=== PATIENT | male | born 2000 ===

== ENCOUNTER 2021-02-16 18:15 | Emergency (ER) | payer OTHER, MEDICAID, SELFPAY ==
--- NOTE | ~2021-02-16 | XR_ITS ---
EXAMINATION: LEFT HAND CLINICAL INFORMATION: Fall at work COMPARISON: None TECHNIQUE: 3 views. FINDINGS: No fracture. No dislocation. Bone and joint are normal. XR/XR hand wrist LT IMPRESSION: Normal left hand.
--- NOTE | ~2021-02-16 | XR_ITS ---
EXAMINATION: XR ELBOW, LEFT CLINICAL INFORMATION: Fall. COMPARISON: None TECHNIQUE: Three views of the left elbow. FINDINGS: The bones and soft tissues are normal. No fracture or joint effusion. Alignment is anatomic. Joint spaces are maintained. XR/XR elbow LT min 3V IMPRESSION: Normal left elbow.
[2021-02-16 21:31] VITALS: BP 102/60; PULSE 70; RESP 18; TEMP 36.4; O2SAT 100; BMI 18.5
--- NOTE | 2021-02-16 23:03 | ED_ITS ---
HPI - Fall General Chief Complaint: Fall Stated Complaint: work inj Time Seen by Provider: 02/16/21 21:45 Source: patient Mode of arrival: ambulatory History of Present Illness HPI Narrative: 20-year-old male with no significant past medical history presenting to the ED complaining of left elbow and wrist pain s/p slip and fall on waxy wood floor at work [employer]. Reports falling onto left side/hyperextension injury. Denies head trauma or LOC. Denies numbness, tingling, weakness Related Data Previous Rx's Medication Instructions Recorded acetaminophen 500 mg tablet 500 mg PO Q6H PRN #20 tab 02/16/21 (Tylenol Extra Strength) naproxen 500 mg tablet 500 mg PO BID PRN 10 Days #20 tab 02/16/21 Allergies Allergy/AdvReac Type Severity Reaction Status Date / Time No Known Allergies Allergy Verified 02/16/21 21:30 Review of Systems Review of Systems: Constitutional: No Fever, No Chills ENT/Mouth: No Ear Pain, No Nasal Congestion, No sore throat Cardiovascular: No Chest Pain, No SOB Respiratory: No Cough Gastrointestinal: No Nausea, No Vomiting, No Abdominal pain Genitourinary: No Dysuria, No Urgency, No Flank Pain Musculoskeletal: + joint pain, No Myalgias, No Joint Swelling Skin: No Skin Lesions, No rash Neuro: No Weakness, No Numbness, No Paresthesias Yes all other systems are reviewed and are negative [facility] Past Medical History Attestation statement: The following information was validated with the patient. Social History Social History Advance Directives: No Physical Exam Vital Signs: Vital Signs: Last Vital Signs Temp 97.6 F 02/16/21 21:31 Pulse 70 02/16/21 21:31 Resp 18 02/16/21 21:31 BP 102/60 02/16/21 21:31 Pulse Ox 100 02/16/21 21:31 Body Mass Index 18.5 Const: General: cooperative and healthy appearing Orientation/consc iousness: patient oriented x3 Limitations: no limitations HENMT: Head: Yes normal to inspection Ears: hearing grossly normal bilaterally General nose exam: Normal external nose present Face and sinus: Yes normal facial exam Eyes: General: appearance normal, both eyes and all related structures EOM: EOMs intact bilaterally Neck: Neck: Yes normal visual inspection and Yes no meningeal signs Resp: Effort & Inspection: normal respiratory effort and no respiratory distress Cardio: Rate: regular rate Peripheral pulses: radial pulses present Skin: Rashes: no rashes Wounds: no wounds Neuro: General: patient oriented x3 and no meningeal signs Gait exam (Neuro): Normal gait present Extrem: Other: Left elbow with mild tenderness to palpation. No appreciable deformity. Full range of motion intact. Supination/pronation intact Left wrist with mild tenderness. No deformity. No snuffbox tenderness. Range of motion intact. NV intact. [id number] opposition intact General: Yes normal to inspection Course Course Course Narrative: XR elbow LT min 3V IMPRESSION: Normal left elbow. XR hand wrist LT IMPRESSION: Normal left hand.? >> results discussed with patient including worrisome signs and symptoms and strict return precautions, he verbalized understanding feel safe discharge home MDM - Fall MDM Narrative Medical decision making narrative: 20-year-old male with no significant past medical history presenting to the ED complaining of left elbow and wrist pain s/p slip and fall on waxy wood floor at work [employer]. On exam VSS, NAD/well- appearing, physical exam as above. Likely MSK pain/strain or tendon/ligamental injury. Will obtain x-rays Medical Records Attestation: I reviewed the patient's medical records. Discharge Plan Discharge Clinical Impression: Elbow pain, left, Left wrist pain Patient Disposition: Home, Self-Care Instructions: Arthralgia (ED) Additional Instructions: Your x-rays are unremarkable Naproxen as an anti-inflammatory/pain medication, take with food In addition take Tylenol Ice and elevate your painful area Rest Follow-up with your doctor Prescriptions: New acetaminophen [Tylenol Extra Strength] 500 mg tablet 500 mg PO Q6H PRN (Reason: pain or fever) Qty: 20 RF: 0 naproxen 500 mg tablet 500 mg PO BID PRN (Reason: pain) 10 Days Qty: 20 RF: 0 Referrals: [facility] [Outside] - 3 days Stand Alone Forms: Work/School Release
== END 2021-02-16 23:16 | disposition home or self-care (01) ==
PROVIDERS: Emergency Provider Emergency Medicine Emergency Medical Services
DX: S53.402A Unspecified sprain of left elbow, initial encounter (principal); M25.522 Pain in left elbow; M25.532 Pain in left wrist; W01.0XXA Fall on same level from slipping, tripping and stumbling without subsequent striking against object, initial encounter; Y93.E8 Activity, other personal hygiene; Y92.9 Unspecified place or not applicable; Y99.0 Civilian activity done for income or pay
CPT/HCPCS: 73080; 73110; 73130; 99283; 99284

== ENCOUNTER 2021-09-11 15:26 | Emergency (ER) | payer MEDICAID, SELFPAY ==
[2021-09-11 15:41] VITALS: BP 109/57; PULSE 95; RESP 16; TEMP 36.8; O2SAT 97
[2021-09-11 17:26] VITALS: BP 106/70; PULSE 97; RESP 18; TEMP 37.2; O2SAT 100
--- NOTE | 2021-09-11 17:34 | ED_ITS ---
HPI - Nausea/Vomiting/Diarrhea General Chief complaint: Nausea/Vomiting/Diarrhea Stated complaint: vomiting Time Seen by Provider: 09/11/21 17:26 Source: patient and family Mode of arrival: ambulatory History of Present Illness HPI Narrative: 20-year-old male with past medical history of Crohn's on Humira, presenting to the ED c/o nausea and vomiting x3 weeks worsening today with 15 episodes of emesis since 04:30AM. Admits to associated epigastric abdominal pain. Denies similar symptoms in the past. Denies fever, chills, diarrhea, constipation, hematemesis, bloody BMs, suspicious food intake, recent travel, dysuria/hematuria. MD elicited complaint: nausea, vomiting and abdominal pain Onset (ago): week(s) Related Data Previous Rx's Medication Instructions Recorded acetaminophen 500 mg tablet 500 mg PO Q6H PRN #20 tab 02/16/21 (Tylenol Extra Strength) naproxen 500 mg tablet 500 mg PO BID PRN 10 Days #20 tab 02/16/21 ondansetron 4 mg disintegrating 4 mg PO Q8H PRN #10 tab 09/11/21 tablet Allergies Allergy/AdvReac Type Severity Reaction Status Date / Time No Known Allergies Allergy Verified 02/16/21 21:30 Review of Systems Review of Systems: Constitutional: No Fever, No Chills, No Fatigue, No Malaise ENT/Mouth: No Ear Pain, No Nasal Congestion, No sore throat, No Rhinorrhea, No Swallowing Difficulty Eyes: No Eye Pain, No Swelling, No Redness Cardiovascular: No Chest Pain, No SOB, No Edema, No Palpitations Respiratory: No Cough, No Sputum, No Dyspnea Gastrointestinal: + Nausea, + Vomiting, No Diarrhea, No Constipation, No Abdominal pain, No Hematochezia, No Melena Genitourinary:No Dysuria, No Urinary Frequency, No Hematuria, No Urinary Incontinence, No Flank Pain, No Urinary Flow Changes Musculoskeletal: No joint pain, No Myalgias, No Joint Swelling Skin: No Skin Lesions, No rash Neuro: No Weakness, No Numbness, No Dizziness, No Headache Yes all other systems are reviewed and are negative [facility] Past Medical History Attestation statement: The following information was validated with the patient. Medical History Acute Crohn's disease Social History Social History Alcohol intake: never Patient Tobacco Use Status: Never used Tobacco Use of substances other than those prescribed or required for medical reasons: No Advance Directives: No Advance Directives Information Provided: No Physical Exam Vital Signs: Vital Signs: Last Vital Signs Temp 99 F 09/11/21 17:26 Pulse 97 09/11/21 17:26 Resp 18 09/11/21 17:26 BP 106/70 09/11/21 17:26 Pulse Ox 100 09/11/21 17:26 BMI result Body Mass Index 20.0 Const: General: cooperative, healthy appearing, no acute distress, alert and awake Orientation/consciousness: patient oriented x3 Limitations: no limitations HEENT: Head: Yes normal to inspection Ears: hearing grossly normal bilaterally General nose exam: Normal external nose present Face and sinus: Yes normal facial exam Eyes: General: appearance normal, both eyes and all related structures EOM: EOMs intact bilaterally Neck: Neck: Yes normal visual inspection Resp: Effort & Inspection: normal respiratory effort and no respiratory distress Auscultation: clear to auscultation bilaterally Cardio: Rate: regular rate Heart sounds: S1 normal heart sound present and S2 normal heart sound present GI: Inspection: Yes normal to inspection Palpation (GI): Soft to palpation, Tenderness to palpation present (GI) in the epigastrum, no guarding and not rigid : General: Yes no CVA tenderness Back/Spine/Pelvis: Back: no CVA tenderness Skin: Rashes: no rashes Wounds: no wounds Neuro: General: patient oriented x3 Gait exam (Neuro): Normal gait present Extrem: General: Yes normal to inspection Course Course Course Narrative: -1900--no leukocytosis. CRP mildly elevated, labs otherwise unremarkable. Will p.o. challenge -patient tolerated p.o. without nausea or vomiting. UA negative. Discussed with patient worrisome signs and symptoms and strict return precautions as needed close follow-up with PCP MDM - Nausea/Vomiting/Diarrhea MDM Narrative Medical decision making narrative: 20-year-old male with past medical history of Crohn's on Humira, presenting to the ED c/o nausea and vomiting x3 weeks worsening today with 15 episodes of emesis since 04:30AM. Admits to associated epigastric abdominal pain. On exam vital signs stable, NAD, nontoxic appearing, abdomen soft with epigastric tenderness to palpation, no rebound or guarding, no CVA tenderness. Concern for gastroenteritis vs food poisoning vs dehydration and metabolic abnormalities. Low concern for pancreatitis/cholecystitis/lithiasis, appendicitis or diverticulitis. Low suspicion for Crohn's flare Plan: Labs, UA, drug screen, IVF, symptomatic treatment, p.o. challenge, re- evaluate Differential Diagnosis Differential diagnosis: Likely traveler's diarrhea, food poisoning, gastr oenteritis, drug-induced nausea and vomiting and dehydration Medical Records Attestation: I reviewed the patient's medical records. Lab Data Attestation: I reviewed the patient's lab results. Result diagrams: 09/11/21 17:42 09/11/21 17:42 Labs: Lab Results 09/11/21 09/11/21 09/11/21 Range/Units 17:42 17:42 17:42 WBC 7.3 (4.8-10.8) X10*3/uL RBC 5.74 (4.60-5.80) X10*6/uL Hgb 15.6 (14.0-18.0) g/dl Hct 47.7 (42.0-52.0) % MCV 83.1 (80.0-98.0) fL MCH 27.2 (27.0-33.0) pg MCHC 32.7 (31.0-36.0) g/dl RDW 14.5 (11.0-16.0) % Plt Count 259 (160-400) X10*3/uL MPV 9.5 (9.4-12.4) fL Immature Gran % (Auto) 0.1 (0.0-0.4) % Neut % (Auto) 81.9 H (45-73) % Lymph % (Auto) 10.2 L (20-40) % [place] % (Auto) 7.7 (2-11) % Eos % (Auto) 0.0 (0-4) % Baso % (Auto) 0.1 (0-2) % Lymph # (Auto) 0.7 L (1.2-4.9) X10*3/uL [place] # (Auto) 0.6 (0.1-1.2) X10*3/uL Eos # (Auto) 0.0 (0.0-0.4) X10*3/uL Baso # (Auto) 0.0 (0.0-0.2) X10*3/uL Abs Immat Gran (auto) 0.01 (0.00-0.03) X10*3/uL Absolute Neuts (auto) 6.0 (2.0-8.3) x10*3/uL Absolute Nucleated RBC 0.000 (0.0-0.012) X10*3/uL Nucleated RBC % (auto) 0.0 (0.0-0.2) /100WBC ESR 2 (0-15) MM/HR Sodium 138 (135-145) mmol/L Potassium 4.5 (3.3-5.1) mmol/L Chloride 102 (96-108) mmol/L Carbon Dioxide 26 (22-29) mmol/L Anion Gap 15 (12-20) BUN 12 (9-16) mg/dL Creatinine 0.81 (0.5-1.4) mg/dL Estim Creat Clear Calc 117.3 Estimated GFR > 60 Random Glucose 90 (60-115) mg/dL Calcium 9.7 (8.4-10.2) mg/dL Magnesium 1.9 (1.6-2.6) mg/dL Total Bilirubin 0.8 (0.0-1.0) mg/dL Direct Bilirubin 0.3 (0.0-0.5) mg/dL AST 21 (5-37) U/L ALT 20 (0-40) U/L Alkaline Phosphatase 142 H (39-117) U/L C-Reactive Protein 1.42 H (< or = 0.50) mg/dL Total Protein 7.9 (6.5-8.0) g/dL Albumin 4.3 (3.5-5.0) g/dL Lipase 17 (8-78) U/L Urine Color Urine Appearance Urine pH (5.0-8.0) Ur Specific [place] (1.005-1.025) Urine Protein (NEG-TRACE) MG/DL Urine Glucose (UA) (NEG) MG/DL Urine Ketones (NEG) MG/DL Urine Blood (NEG) Urine Nitrite (NEG) Ur Leukocyte Esterase (NEG) Urine RBC (0) /HPF Urine WBC (0-4) /HPF Ur Squamous Epith Cells /LPF Urine Bacteria /LPF Urine Mucus /LPF 09/11/21 Range/Units 19:18 WBC (4.8-10.8) X10*3/uL RBC (4.60-5.80) X10*6/uL Hgb (14.0-18.0) g/dl Hct (42.0-52.0) % MCV (80.0-98.0) fL MCH (27.0-33.0) pg MCHC (31.0-36.0) g/dl RDW (11.0-16.0) % Plt Count (160-400) X10*3/uL MPV (9.4-12.4) fL Immature Gran % (Auto) (0.0-0.4) % Neut % (Auto) (45-73) % Lymph % (Auto) (20-40) % [place] % (Auto) (2-11) % Eos % (Auto) (0-4) % Baso % (Auto) (0-2) % Lymph # (Auto) (1.2-4.9) X10*3/uL [place] # (Auto) (0.1-1.2) X10*3/uL Eos # (Auto) (0.0-0.4) X10*3/uL Baso # (Auto) (0.0-0.2) X10*3/uL Abs Immat Gran (auto) (0.00-0.03) X10*3/uL Absolute Neuts (auto) (2.0-8.3) x10*3/uL Absolute Nucleated RBC (0.0-0.012) X10*3/uL Nucleated RBC % (auto) (0.0-0.2) /100WBC ESR (0-15) MM/HR Sodium (135-145) mmol/L Potassium (3.3-5.1) mmol/L Chloride (96-108) mmol/L Carbon Dioxide (22-29) mmol/L Anion Gap (12-20) BUN (9-16) mg/dL Creatinine (0.5-1.4) mg/dL Estim Creat Clear Calc Estimated GFR Random Glucose (60-115) mg/dL Calcium (8.4-10.2) mg/dL Magnesium (1.6-2.6) mg/dL Total Bilirubin (0.0-1.0) mg/dL Direct Bilirubin (0.0-0.5) mg/dL AST (5-37) U/L ALT (0-40) U/L Alkaline Phosphatase (39-117) U/L C-Reactive Protein (< or = 0.50) mg/dL Total Protein (6.5-8.0) g/dL Albumin (3.5-5.0) g/dL Lipase (8-78) U/L Urine Color YELLOW Urine Appearance CLEAR Urine pH 6.0 (5.0-8.0) Ur Specific [place] >= 1.030 H (1.005-1.025) Urine Protein 1+ H (NEG-TRACE) MG/DL Urine Glucose (UA) NEG (NEG) MG/DL Urine Ketones >=80 (NEG) MG/DL Urine Blood NEG (NEG) Urine Nitrite NEG (NEG) Ur Leukocyte Esterase NEG (NEG) Urine RBC 0-2 (0) /HPF Urine WBC 0 (0-4) /HPF Ur Squamous Epith Cells TRACE /LPF Urine Bacteria NONE /LPF Urine Mucus 1+ /LPF Discharge Plan Discharge Clinical Impression: Nausea & vomiting Patient Disposition: Home, Self-Care Instructions: Acute Nausea and Vomiting (ED) Additional Instructions: Your blood work and urine were reassuring today in the emergency department Zofran as antinausea medication please take as needed Practice a bland diet Please follow-up with her doctor If you are unable to eat or drink, develops fever, constant worsening abdominal pain please return to the emergency department Prescriptions: New ondansetron 4 mg tablet,disintegrating 4 mg PO Q8H PRN (Reason: nausea and vomiting) Qty: 10 0RF No Action acetaminophen [Tylenol Extra Strength] 500 mg tablet 500 mg PO Q6H PRN (Reason: pain or fever) Qty: 20 0RF naproxen 500 mg tablet 500 mg PO BID PRN (Reason: pain) 10 Days Qty: 20 0RF Referrals: Physician,Unknown J [Primary Care Provider] - 5 days (as needed)
[2021-09-11 17:46] LABS: MANUAL DIFF FLAG NO
[2021-09-11 17:49] LABS: Basophils Percent Auto 0.1 % (0-2); Hematocrit 47.7 % (42.0-52.0); Hemoglobin 15.6 g/dl (14.0-18.0); Imm Gran Abs Auto 0.01 X10*3/uL (0.00-0.03); Imm Gran Pct Auto 0.1 % (0.0-0.4); Lymphocytes Absolute Auto 0.7 X10*3/uL (1.2-4.9); Lymphocytes Percent Auto 10.2 % (20-40); Mean Corpuscular HGB Conc 32.7 g/dl (31.0-36.0); Mean Corpuscular Hemoglobin 27.2 pg (27.0-33.0); Mean Corpuscular Volume 83.1 fL (80.0-98.0); Mean Platelet Volume 9.5 fL (9.4-12.4); Monocytes Absolute Auto 0.6 X10*3/uL (0.1-1.2); Monocytes Percent Auto 7.7 % (2-11); Neutrophils Percent Auto 81.9 % (45-73); Platelet Count 259 X10*3/uL (160-400); Red Blood Count 5.74 X10*6/uL (4.60-5.80); Red Cell Distribution Width 14.5 % (11.0-16.0); White Blood Count 7.3 X10*3/uL (4.8-10.8)
[2021-09-11] MEDS: 0.9 % Sodium Chloride 1,000 ML 999 ML IV ×2 (17:58→18:52)
[2021-09-11] MEDS: ondansetron HCL 4 MG/2 ML VIAL IVPUSH (17:58)
[2021-09-11] MEDS: Famotidine/PF 20 MG/2 ML VIAL IVPUSH (17:58)
[2021-09-11] MEDS: Ketorolac Tromethamine 15 MG/ML VIAL IVPUSH (17:58)
[2021-09-11] MEDS: Magnesium Hydrox/Alum Hydrox 30 ML ORAL.SUSP PO (17:59)
[2021-09-11 18:09] LABS: Alanine Aminotransferase 20 U/L (0-40); Albumin Level 4.3 g/dL (3.5-5.0); Alkaline Phosphatase 142 U/L (39-117); Anion Gap 15 (12-20); Aspartate Amino Transferase 21 U/L (5-37); Bilirubin Direct 0.3 mg/dL (0.0-0.5); Bilirubin Total 0.8 mg/dL (0.0-1.0); Blood Urea Nitrogen 12 mg/dL (9-16); C Reactive Protein 1.42 mg/dL (< or = 0.50); Calcium 9.7 mg/dL (8.4-10.2); Carbon Dioxide 26 mmol/L (22-29); Chloride 102 mmol/L (96-108); Creatinine Clr Calc Pharmacy 117.3; Estimated Glomerular Filt Rate > 60; Glucose Random 90 mg/dL (60-115); Lipase 17 U/L (8-78); Magnesium 1.9 mg/dL (1.6-2.6); Potassium 4.5 mmol/L (3.3-5.1); Sodium 138 mmol/L (135-145); Total Protein 7.9 g/dL (6.5-8.0)
[2021-09-11 18:28] LABS: Erythrocyte Sedimentation Rate 2 MM/HR (0-15)
[2021-09-11 19:26] LABS: Appearance Urine CLEAR; Color Urine YELLOW; Glucose Urine UA NEG (NEG); Leukocyte Esterase Urine NEG (NEG); Nitrite Urine NEG (NEG); Specific Gravity - Urine >= 1.030 (1.005-1.025); UACC Culture Trigger NO; Urine Blood NEG (NEG); Urine Ketones >=80 MG/DL (NEG); Urine Protein 1+ MG/DL (NEG-TRACE)
[2021-09-11 19:33] LABS: Mucus Urine 1+ /LPF; RBC Urine 0-2 /HPF (0); Squamous Epithelial Cell Urine TRACE /LPF; WBC Urine 0 /HPF (0-4)
[2021-09-11 19:50] LABS: Amphetamine Screen Urine Not Detected (Not Detect); Barbiturates, Urine Not Detected (Not Detect); Benzodiazepines Screen Urine Not Detected (Not Detect); Cannabinoid Screen Urine Not Detected (Not Detect); Cocaine Screen Urine Not Detected (Not Detect); Fentanyl, urine Not Detected (Not Detect); Opiate Screen Urine Not Detected (Not Detect); Phencyclidine Screen Urine Not Detected (Not Detect)
== END 2021-09-11 20:08 | disposition home or self-care (01) ==
PROVIDERS: Physician Assistant; Emergency Provider Internal Medicine
DX: R11.2 Nausea with vomiting, unspecified (principal); K50.90 Crohn's disease, unspecified, without complications; Z79.899 Other long term (current) drug therapy
CPT/HCPCS: 36415; 80048; 80076; 80307; 81001; 83690; 83735; 85025; 85652; 86140; 96361; 96374; 96375; 99284; J1885; J2405

== ENCOUNTER 2023-07-07 12:38 | Emergency (ER) | payer OTHER, SELFPAY ==
--- NOTE | ~2023-07-07 | XR_ITS ---
EXAMINATION: XR CHEST CLINICAL INFORMATION: Cough. COMPARISON: None available. TECHNIQUE: 2 views of the chest were obtained. FINDINGS: No significant abnormality is noted involving the heart, lungs, mediastinum, bony thorax or soft tissues. XR/XR chest 2V IMPRESSION: Unremarkable chest examination.
[2023-07-07 12:47] VITALS: BP 107/65; PULSE 125; RESP 18; TEMP 38.6; O2SAT 100; BMI 18.9
--- NOTE | 2023-07-07 12:50 | ED_ITS ---
HPI - General Adult General Chief complaint: Upper Respiratory Symptoms Stated complaint: body ache, nausea Time Seen by Provider: 07/07/23 13:38 Source: patient Mode of arrival: ambulatory Limitations: no limitations History of Present Illness HPI narrative: Patient comes to the emergency room complaining of body aches, fever, cough starting today. Patient states that he feels the same way as when he tested COV ID positive for the 1st time. Patient denies any shortness of breath, no chest pain, no nausea vomiting diarrhea or UTI symptoms Related Data Previous Rx's Medication Instructions Recorded acetaminophen 500 mg tablet 500 mg PO Q6H PRN pain or fever 02/16/21 (Tylenol Extra Strength) #20 tabs naproxen 500 mg tablet 500 mg PO BID PRN pain 10 days #20 02/16/21 tabs ondansetron 4 mg disintegrating 4 mg PO Q8H PRN nausea and 09/11/21 tablet vomiting #10 tabs acetaminophen 500 mg capsule 500 mg PO QID PRN fever or pain 07/07/23 #14 caps ibuprofen 600 mg tablet 600 mg PO TID PRN fever or pain 07/07/23 #14 tabs nirmatrelvir 300 mg (150 mg See Rx Instructions PO .COMPLEX 07/07/23 x2)-ritonavir 100 mg tablet,dose #30 ea pack (Paxlovid) Allergies Allergy/AdvReac Type Severity Reaction Status Date / Time No Known Allergies Allergy Verified 07/07/23 12:52 Review of Systems Review of Systems: Constitutional : No Weight loss, complaining of fever chills, fatigue and generalized malaise ENT/Mouth : No Hearing loss, No Ear Pain, No Nasal Congestion, No Sinus Pain, No Hoarseness, complaining of mild sore throat, No Rhinorrhea, No Swallowing Difficulty Eyes: No Eye Pain, No Swelling, No Redness, No Foreign Body, No Discharge, No Vision Changes Cardiovascular : No Chest Pain, No SOB, No Dyspnea on Exertion, No Orthopnea, No Edema, No Palpitations Respiratory : No Cough, No Sputum, No Wheezing, No Smoke Exposure, No Dyspnea Gastrointestinal : No Nausea, No Vomiting, No Diarrhea, No Constipation, No abdominal Pain, No Hematochezia, No Melena Genitourinary : no irregular bleeding, No Dysuria, No Urinary Frequency, No Hematuria, No Urinary Incontinence, No Urgency, No Flank Pain, No Urinary Flow Changes, No Hesitancy Musculoskeletal : No joint pain, No Myalgias, No Joint Swelling Skin : No Skin Lesions, No rash Neuro : No Weakness, No Numbness, No Paresthesias, No Loss of Consciousness, No Dizziness, No Headache Psych : No Anxiety/Panic, No Depression, No SI/HI/AH/VH, No Social Issues, Heme/Lymph: No Bruising, No Bleeding,No Lymphadenopathy Endocrine : No Polyuria, No Polydipsia, No Temperature Intolerance FOR[facility]LY [facility], [facility] Past Medical History Medical History Acute Crohn's disease Social History Social History Alcohol intake: never Patient Tobacco Use Status: Never used Tobacco Advance Directives: No Advance Directives Information Provided: Yes Physical Exam ED Vital Signs: Vital Signs - 24 hr 07/07/23 12:47 Temperature 101.4 F H Pulse Rate 125 H Respiratory Rate 18 Blood Pressure 107/65 Pulse Oximetry 100 Oxygen Delivery Method Room Air BMI result Body Mass Index 18.9 Const Other: Appearance: Alert. Oriented X3. No acute distress. Eyes: Pupils equal, round and reactive to light. ENT: Pharynx normal. Neck: Normal inspection. Neck supple. No lymph nodes noted. No crepitus CVS: Normal heart rate and rhythm. Pulses normal. Normal S1 and S2 Respiratory: No respiratory distress. Breath sounds normal. No Wheezing. No rales Abdomen: Soft and nontender. No rigidity. No distention. Skin: Skin warm and dry. Normal skin color. Normal skin turgor. Extremities: No lower extremity edema. No Lacerations. No Rash Neuro: Oriented X 3. No motor deficit. No sensory deficit. Moving all extremities. No slurred speech. CN 2 through 12 grossly intact Psych: calm, cooperative, normal affect Course Course Course Narrative: RME performed by Negrita Vela PA-C. Patient is a 22 year old assigned male at presenting to the emergency department with body aches and a cough. Detailed physical exam and review of systems are deferred to the emergency medical dispatcher. Imaging and swabs ordered. Patient placed back in the waiting room pending room availability and results. Medical Decision Making Medical Decision Making MDM Narrative: Patient is well-appearing patient does have fever. Patient given ibuprofen in the emergency room. -my interpretation of labs: Positive for COVID -I discussed with the patient treating symptomatically versus with the antiviral medication, patient decided to try Paxlovid Differential Diagnosis Differential Diagnoses: The differential diagnosis associated with the presentation includes (COVID, influenza, URI) Lab Data Labs: Lab Results 07/07/23 Range/Units 12:58 COVID-19 (AIYANA) Positive A (Negative) COVID-19 Clin Com See Note Influenza Type A (MICHAEL) Negative (Negative) Influenza Type B (MICHAEL) Negative (Negative) Influenza A & B Note See Note Discharge Plan Discharge Clinical Impression: COVID-19 Patient Disposition: Home, Self-Care Instructions: COVID-19 (Coronavirus Disease 2019) (ED) Additional Instructions: Please follow-up with your primary care physician tomorrow. If you have any worsening or new symptoms, please return to the emergency room or call 911 Prescriptions: New Paxlovid 300 mg (150 mg x 2)-100 mg tablets,dose pack See Rx Instructions .ROUTE .COMPLEX Qty: 30 0RF Rx Instructions: take TWO 150 mg tablets of nirmatrelvir with ONE 100 mg tablet of ritonavir twice daily for 5 days ibuprofen 600 mg tablet 600 mg PO TID PRN (Reason: fever or pain) Qty: 14 0RF acetaminophen 500 mg capsule 500 mg PO QID PRN (Reason: fever or pain) Qty: 14 0RF No Action acetaminophen [Tylenol Extra Strength] 500 mg tablet 500 mg PO Q6H PRN (Reason: pain or fever) Qty: 20 0RF naproxen 500 mg tablet 500 mg PO BID PRN (Reason: pain) 10 Days Qty: 20 0RF ondansetron 4 mg tablet,disintegrating 4 mg PO Q8H PRN (Reason: nausea and vomiting) Qty: 10 0RF
[2023-07-07 13:17] LABS: COVID-19 Test Positive (Negative); IDNOW Serial# 08D9AD1C
[2023-07-07 13:30] LABS: IDNOW Serial# 9DB6401D; Influenza A Negative (Negative); Influenza B2 Negative (Negative)
[2023-07-07] MEDS: Ibuprofen 600 MG TABLET PO (14:06)
== END 2023-07-07 14:13 | disposition home or self-care (01) ==
PROVIDERS: Physician Assistant Medical; Emergency Provider Emergency Medicine
DX: U07.1 COVID-19 (principal); M79.10 Myalgia, unspecified site; R11.2 Nausea with vomiting, unspecified; R05.9 Cough, unspecified
CPT/HCPCS: 71046; 87502; 87635; 99283

== ENCOUNTER 2023-12-11 18:13 | Emergency (ER) | payer OTHER, SELFPAY ==
--- NOTE | ~2023-12-11 | CT_ITS ---
EXAMINATION: CT ABDOMEN AND PELVIS WITH CONTRAST CLINICAL INFORMATION: Abdominal pain. History of Crohn's disease. COMPARISON: None available. TECHNIQUE: Multidetector volumetric images were obtained from the superior aspect of the liver through the pubic symphysis following administration 85 mL of Omnipaque 350 intravenous contrast. Sagittal and coronal reformatted images were obtained on the technologist's workstation. Oral contrast: No This CT examination was performed using dose optimization techniques as appropriate, variously including the following: *Automated exposure control *Adjustment of mA and/or kV according to patient size (this includes techniques or standardized protocols for targeted exams where dose is matched to indication/reason for exam; i.e. extremities or head) *Use of iterative reconstruction technique DLP: 253 mGy-cm FINDINGS: LUNG BASES: The visualized lung bases are unremarkable. LIVER, GALLBLADDER, AND BILIARY TREE: The liver is normal in size, shape, and attenuation. No focal hepatic lesion or biliary ductal dilatation is present. The gallbladder is unremarkable with no evidence of radiopaque gallstones, gallbladder wall thickening, or obvious pericholecystic inflammatory changes. PANCREAS: Unremarkable. SPLEEN: Unremarkable. ADRENAL GLANDS: Unremarkable. KIDNEYS AND URETERS: The kidneys are normal in size, shape, and attenuation. No hydronephrosis, hydroureter, or calculi seen. No perinephric stranding. BLADDER: Unremarkable. GASTROINTESTINAL TRACT: There is mild to moderate thickening of distal small bowel and diffuse mild to moderate thickening of large bowel. The appendix is is not identified. ABDOMINAL WALL: No significant hernia is appreciated. LYMPH NODES: Normal. VASCULAR: Unremarkable. PELVIC VISCERA: Unremarkable. OSSEOUS STRUCTURES: Unremarkable. CT/CT abdomen pelvis w IV con IMPRESSION: Mild to moderate thickening of distal small bowel and diffuse mild to moderate thickening of large bowel consistent with history of Crohn's disease. No other significant abnormality seen. Fleischner guidelines were followed.
[2023-12-11 18:36] VITALS: BP 104/61; PULSE 105; RESP 18; TEMP 37.2; O2SAT 98; BMI 17.0
[2023-12-11 18:56] LABS: Basophils Percent Auto 0.6 % (0-2); Eosinophils Absolute Auto 0.1 X10*3/uL (0.0-0.4); Eosinophils Percent Auto 2.7 % (0-4); Hematocrit 30.2 % (42.0-52.0); Hemoglobin 9.3 g/dl (14.0-18.0); Imm Gran Abs Auto 0.01 X10*3/uL (0.00-0.03); Imm Gran Pct Auto 0.2 % (0.0-0.4); Lymphocytes Absolute Auto 0.7 X10*3/uL (1.2-4.9); Lymphocytes Percent Auto 13.8 % (20-40); MANUAL DIFF FLAG SCAN; Mean Corpuscular HGB Conc 30.8 g/dl (31.0-36.0); Mean Corpuscular Hemoglobin 21.4 pg (27.0-33.0); Mean Corpuscular Volume 69.6 fL (80.0-98.0); Mean Platelet Volume 8.2 fL (9.4-12.4); Monocytes Absolute Auto 1.2 X10*3/uL (0.1-1.2); Monocytes Percent Auto 22.8 % (2-11); Neutrophils Absolute Auto 3.1 x10*3/uL (2.0-8.3); Neutrophils Percent Auto 59.9 % (45-73); Platelet Count 448 X10*3/uL (160-400); Red Blood Count 4.34 X10*6/uL (4.60-5.80); Red Cell Distribution Width 17.2 % (11.0-16.0); SCAN SMEAR FLAG 1; White Blood Count 5.2 X10*3/uL (4.8-10.8)
[2023-12-11 19:19] LABS: Alanine Aminotransferase 8 U/L (0-40); Alkaline Phosphatase 76 U/L (39-117); Anion Gap 11 (12-20); Aspartate Amino Transferase 14 U/L (5-37); Bilirubin Total 0.3 mg/dL (0.0-1.0); Blood Urea Nitrogen 10 mg/dL (9-16); C Reactive Protein 12.51 mg/dL (< or = 0.50); Calcium 8.6 mg/dL (8.4-10.2); Carbon Dioxide 28 mmol/L (22-29); Chloride 99 mmol/L (96-108); Estimated Glomerular Filt Rate > 60; Glucose Random 99 mg/dL (60-115); Lipase 18 U/L (8-78); Potassium 3.8 mmol/L (3.3-5.1); Sodium 134 mmol/L (135-145); Total Protein 7.5 g/dL (6.5-8.0)
[2023-12-11 20:14] LABS: SLIDE REVIEW VERIFIED
[2023-12-11 22:17] VITALS: BP 106/59; PULSE 97; RESP 20; TEMP 37; O2SAT 99
--- NOTE | 2023-12-11 23:20 | ED_ITS ---
HPI - General Adult General Chief complaint: Abdominal Pain Stated complaint: crohn's disease, fatigue, not eating Time Seen by Provider: 12/11/23 22:48 History of Present Illness ED Provider: Arron Gan PA-C HPI narrative: 22 yold male with pmh of [place] presents to the ED for lower abdominal pain, rectal bleeding with stool, for the past couple of days. Patient states he has not been compliant with his senior bi architect and they have not seen his senior bi architect specialist for the past 3 years. Patient states his Crohn's has not been managed for the past 3 years. Related Data Previous Rx's ?Medication ?Instructions ?Recorded acetaminophen 500 mg tablet 500 mg PO Q6H PRN pain or fever 02/16/21 (Tylenol Extra Strength) #20 tabs naproxen 500 mg tablet 500 mg PO BID PRN pain 10 days #20 02/16/21 tabs ondansetron 4 mg disintegrating 4 mg PO Q8H PRN nausea and 09/11/21 tablet vomiting #10 tabs acetaminophen 500 mg capsule 500 mg PO QID PRN fever or pain 07/07/23 #14 caps ibuprofen 600 mg tablet 600 mg PO TID PRN fever or pain 07/07/23 #14 tabs nirmatrelvir 300 mg (150 mg See Rx Instructions PO .COMPLEX 07/07/23 x2)-ritonavir 100 mg tablet,dose #30 ea pack (Paxlovid) prednisone 20 mg tablet 40 mg (2 x 20 mg) PO DAILY 5 days 12/12/23 #10 tabs Allergies Allergy/AdvReac Type Severity Reaction Status Date / Time No Known Allergies Allergy Verified 12/11/23 18:39 Review of Systems 2 Review of Systems: Lower abdominal pain, blood in stool Yes all other systems are reviewed and are negative FOR[facility]LY [facility], [facility] Past Medical History Medical History Acute Crohn's disease Social History Social History Alcohol intake: never Patient Tobacco Use Status: Never used Tobacco Advance Directives: No Advance Directives Information Provided: No Do you have a plan to hurt others: No Plan Physical Exam ED Vital Signs: Vital Signs - 24 hr 12/11/23 18:36 12/11/23 22:17 12/12/23 01:31 Temperature 98.9 F 98.6 F 98.3 F Pulse Rate 105 H 97 94 Respiratory Rate 18 20 14 Blood Pressure 104/61 106/59 L 107/62 Pulse Oximetry 98 99 97 Oxygen Delivery Method Room Air Room Air Room Air BMI result Body Mass Index 17.0 Const General: cooperative, healthy appearing, comfortable, no acute distress, well developed, alert, awake and Physically active Orientation/consciousness: patient oriented x3 [facility] Head: Yes normal to inspection, Yes No palpable skull fracture present, Yes normocephalic and Yes atraumatic Eyes General: appearance normal, both eyes and all related structures Neck Neck: Yes normal visual inspection, Yes full ROM, Yes no lymphadenopathy, Yes no meningeal signs, Yes trachea midline, Yes supple, No anterior neck swelling and No tender Chest Chest palpation & inspection: normal inspection of the chest and normal palpation of entire chest wall Resp Effort & Inspection: normal respiratory effort and able to speak in complete sentences Auscultation: clear to auscultation bilaterally Cardio Jugular venous distension: no JVD Heart sounds: S1 normal heart sound present and S2 normal heart sound present GI Inspection: Yes normal to inspection Palpation (GI): Soft to palpation, not firm, Tenderness to palpation present (GI) in the LLQ and in the RLQ, no guarding and not rigid General: No CVA tenderness and Yes no CVA tenderness Back/Spine/Pelvis Back: no CVA tenderness, No CVA tenderness and No back tenderness Skin General skin exam: no rashes or lesions noted, elasticity normal and turgor normal Neuro General: patient oriented x3, gait normal, tone normal, moves all extremities, Normal light touch and pain sensation, no meningeal signs, no focal motor deficits, CN's II-XI intact bilaterally and normal sensation to monofilament Extrem General: Yes normal to inspection, Yes full ROM and Yes capillary refill normal Psych Appearance: grossly normal, well kempt and not disheveled Medications Administered Discontinued Medications Generic Name Dose Route Start Last Admin Trade Name Freq PRN Reason Stop Dose Admin Sodium Chloride 1,000 mls @ 999 mls/hr 12/11/23 23:05 12/12/23 00:29 Ns IV 12/12/23 00:05 Infused .Q1H1M STA Infusion Iohexol 85 ml 12/11/23 23:28 12/11/23 23:28 Iohexol 350 Mg/Ml 100 Ml Infus..Btl IV 12/11/23 23:29 85 ml ONCE ONE Administration Methylprednisolone Sodium Succinate 60 mg 12/11/23 23:05 12/11/23 23:28 Methylprednisolone Sod Succ 125 Mg/2 Ml Vial IVPUSH 12/11/23 23:06 60 mg ONCE ONE Administration Morphine Sulfate 2 mg 12/11/23 23:05 12/11/23 23:28 Morphine Sulfate 2 Mg/Ml Cartridge IVPUSH 12/11/23 23:06 2 mg ONCE ONE Administration Protocol Medical Decision Making Medical Decision Making [facility] Narrative: 22-year-old male presents to ED for lower abdominal pain with diarrhea and blood in stool. Patient has not seen a senior bi architect for the past 3 years. Initial labs show anemia waiting for [facility] labs to compare. Solu-Medrol morphine CT scan ordered 2:12am: Patient feels better after receiving Solu-Medrol and morphine. Abdominal CT scan came back negative for any abscess, confirmed Crohn's. Patient's stool guaiac negative. Not suspecting GI bleed. 04/24/2023 [facility] notes show hemoglobin hematocrit 11.5/38.3. Anemia due to Crohn's. Rectal exam negative for any hemorrhaging, bright red blood, melena, black stool, or hemorrhoids. Patient is not septic. Differential Diagnosis Differential Diagnoses: The differential diagnosis associated with the presentation includes (Abscess, perforation, colitis) Admission/Observation Consideration of admission/observation: Escalation of care including admission/observation considered Lab Data [facility] Lab Attestation statement: I reviewed the patient's lab results. 12/11/23 18:50 12/11/23 18:50 Labs: Lab Results 12/11/23 12/12/23 12/12/23 Range/Units 18:50 01:27 02:27 WBC 5.2 (4.8-10.8) X10*3/uL RBC 4.34 L D (4.60-5.80) X10*6/uL Hgb 9.3 L D (14.0-18.0) g/dl Hct 30.2 L D (42.0-52.0) % MCV 69.6 L (80.0-98.0) fL MCH 21.4 L (27.0-33.0) pg MCHC 30.8 L (31.0-36.0) g/dl RDW 17.2 H (11.0-16.0) % Plt Count 448 H D (160-400) X10*3/uL MPV 8.2 L (9.4-12.4) fL Immature Gran % (Auto) 0.2 (0.0-0.4) % Neut % (Auto) 59.9 (45-73) % Lymph % (Auto) 13.8 L (20-40) % [place] % (Auto) 22.8 H (2-11) % Eos % (Auto) 2.7 (0-4) % Baso % (Auto) 0.6 (0-2) % Lymph # (Auto) 0.7 L (1.2-4.9) X10*3/uL [place] # (Auto) 1.2 (0.1-1.2) X10*3/uL Eos # (Auto) 0.1 (0.0-0.4) X10*3/uL Baso # (Auto) 0.0 (0.0-0.2) X10*3/uL Abs Immat Gran (auto) 0.01 (0.00-0.03) X10*3/uL Absolute Neuts (auto) 3.1 (2.0-8.3) x10*3/uL Absolute Nucleated RBC 0.000 (0.0-0.012) X10*3/uL Nucleated RBC % (auto) 0.0 (0.0-0.2) /100WBC Smear Tech's Comments VERIFIED Sodium 134 L (135-145) mmol/L Potassium 3.8 (3.3-5.1) mmol/L Chloride 99 (96-108) mmol/L Carbon Dioxide 28 (22-29) mmol/L Anion Gap 11 L (12-20) BUN 10 (9-16) mg/dL Creatinine 0.81 (0.5-1.4) mg/dL Estim Creat Clear Calc 101.0 Estimated GFR > 60 Random Glucose 99 (60-115) mg/dL Calcium 8.6 D (8.4-10.2) mg/dL Total Bilirubin 0.3 (0.0-1.0) mg/dL AST 14 (5-37) U/L ALT 8 (0-40) U/L Alkaline Phosphatase 76 (39-117) U/L C-Reactive Protein 12.51 H (< or = 0.50) mg/dL Total Protein 7.5 (6.5-8.0) g/dL Albumin 3.0 L (3.5-5.0) g/dL Lipase 18 (8-78) U/L Urine Color Yellow Urine Appearance Clear Urine pH 5.5 (5.0-9.0) Ur Specific [place] >= 1.030 H (1.005-1.025) Urine Protein Negative (Neg-Trace) mg/dL Urine Glucose (UA) Negative (Negative) mg/dL Urine Ketones 40 (Negative) mg/dL Urine Blood Negative (Negative) Urine Nitrite Negative (Negative) Ur Leukocyte Esterase Negative (Negative) Stool Occult Blood NEGATIVE (NEGATIVE) Independent Interpretation I performed an independent interpretation of an: CT Scan Radiology Impression Discussion of test interpretation with radiology: I have reviewed the radiologist's reading. Independent Historian Clinical information obtained from an independent historian. History obtained from or confirmed by: Parent and Other (Patient) External Record Review External record reviewed: Other (Prior) Prescription Management I considered prescription management with: Pain Medication Discharge Plan Discharge Clinical Impression: Crohn disease Patient Disposition: Home, Self-Care Instructions: Crohn Disease (ED) Additional Instructions: The abdominal CT scan came back negative for perforation or abscess. Recommend follow-up with your primary care provider. Recommend follow-up with the gastroenterology. Return to the ED immediately for abdominal pain, fever, chills, profuse diarrhea with bloody stool, weakness, dizziness, or any other concerning symptoms. Prescriptions: New prednisone 20 mg tablet 40 mg PO DAILY 5 Days Qty: 10 0RF No Action acetaminophen [Tylenol Extra Strength] 500 mg tablet 500 mg PO Q6H PRN (Reason: pain or fever) Qty: 20 0RF naproxen 500 mg tablet 500 mg PO BID PRN (Reason: pain) 10 Days Qty: 20 0RF ondansetron 4 mg tablet,disintegrating 4 mg PO Q8H PRN (Reason: nausea and vomiting) Qty: 10 0RF Paxlovid 300 mg (150 mg x 2)-100 mg tablets,dose pack See Rx Instructions .ROUTE .COMPLEX Qty: 30 0RF Rx Instructions: take TWO 150 mg tablets of nirmatrelvir with ONE 100 mg tablet of ritonavir twice daily for 5 days ibuprofen 600 mg tablet 600 mg PO TID PRN (Reason: fever or pain) Qty: 14 0RF acetaminophen 500 mg capsule 500 mg PO QID PRN (Reason: fever or pain) Qty: 14 0RF Stand Alone Forms: Work/School Release Print Language: Austrian
[2023-12-11] MEDS: iohexoL 350 MG/ML 100 ML INFUS..BTL 85 ML IV (23:28)
[2023-12-11] MEDS: Morphine Sulfate 2 MG/ML CARTRIDGE IVPUSH (23:28)
[2023-12-11] MEDS: methylPREDNISolone Sod Succ 125 MG/2 ML VIAL 60 MG IVPUSH (23:28)
[2023-12-11] MEDS: 0.9 % Sodium Chloride 1,000 ML 999 ML IV (23:28)
[2023-12-12 01:31] VITALS: BP 107/62; PULSE 94; RESP 14; TEMP 36.8; O2SAT 97
[2023-12-12 01:35] LABS: OBS Int Ctl Valid YES; OBS1 NEGATIVE (NEGATIVE)
[2023-12-12 02:34] LABS: Appearance Urine Clear; Color Urine Yellow; Glucose Urine UA Negative (Negative); Leukocyte Esterase Urine Negative (Negative); Nitrite Urine Negative (Negative); PH 5.5 (5.0-9.0); Specific Gravity - Urine >= 1.030 (1.005-1.025); Urine Blood Negative (Negative); Urine Ketones 40 mg/dL (Negative); Urine Protein Negative (Neg-Trace)
[2023-12-12 03:28] VITALS: BP 107/62; PULSE 94; RESP 14; TEMP 36.8; O2SAT 97
== END 2023-12-12 03:28 | disposition home or self-care (01) ==
PROVIDERS: Physician Assistant; Emergency Provider Internal Medicine
DX: K50.90 Crohn's disease, unspecified, without complications (principal); R10.2 Pelvic and perineal pain; Z79.899 Other long term (current) drug therapy
CPT/HCPCS: 36415; 74177; 80053; 81003; 82272; 83690; 85025; 86140; 96361; 96374; 96375; 99284; J2270; J2919; Q9967

== ENCOUNTER 2024-04-09 11:43 | Inpatient (IN) | payer OTHER, SELFPAY ==
--- NOTE | ~2024-04-09 | XR_ITS ---
EXAMINATION: XR ABDOMEN KUB CLINICAL INDICATION: Chronic disease. COMPARISON: CT abdomen/pelvis dated 04/09/2024. TECHNIQUE: AP supine views of the abdomen. FINDINGS: Redemonstration of central dilated bowel loops, similar when compared to the prior CT which could represent ileus. Small amount of air and stool within the rectum. No abnormal soft tissue calcification. No acute osseous abnormality. XR/XR KUB IMPRESSION: Redemonstration of central dilated bowel loops, similar when compared to the prior CT which could represent ileus. Small amount of air and stool within the rectum. Electronically signed by: Timothy Jimenez MD 04/10/2024 08:18 PM [facility]
--- NOTE | ~2024-04-09 | CT_ITS ---
EXAMINATION: CT ABDOMEN AND PELVIS WITH CONTRAST CLINICAL INFORMATION: Crohn's disease COMPARISON: CT abdomen pelvis 12/11/23 TECHNIQUE: Multidetector volumetric imaging was performed from the superior aspect of the liver through the pubic symphysis with intravenous contrast. A total of 85 mL of Omnipaque 350 was utilized for the study. Sagittal and coronal reformatted images were obtained on the technologist's workstation. This CT examination was performed using dose optimization techniques as appropriate, variously including the following: *Automated exposure control *Adjustment of mA and/or kV according to patient size (this includes techniques or standardized protocols for targeted exams where dose is matched to indication/reason for exam; i.e. extremities or head) *Use of iterative reconstruction technique DLP: 256 mGy-cm FINDINGS: LUNG BASES: The visualized lung bases are unremarkable. LIVER, GALLBLADDER, AND BILIARY TREE: The liver is enlarged at 18.5 cm in greatest length. There is some mild periportal edema. No focal hepatic lesion or biliary ductal dilatation is present. The gallbladder is unremarkable with no evidence of radiopaque gallstones, gallbladder wall thickening, or obvious pericholecystic inflammatory changes. PANCREAS: Unremarkable. SPLEEN: Unremarkable. ADRENAL GLANDS: Unremarkable. KIDNEYS AND URETERS: The kidneys are normal in size, shape, and attenuation. No hydronephrosis, hydroureter, or calculi seen. No perinephric stranding. BLADDER: Unremarkable. GASTROINTESTINAL TRACT: There is marked inflammatory change and mucosal thickening involving the entire colon with marked dilatation of the cecum measuring 7.8 x 9.4 x 5.8 cm which is filled with fluid, significantly larger than on 12/11/23. There is some minimal dilatation of small bowel but no evidence of obstruction. ABDOMINAL WALL: No significant hernia is appreciated. LYMPH NODES: No retroperitoneal lymphadenopathy. Multiple small lymph nodes are present in the mesentery. VASCULAR: Unremarkable. PELVIC VISCERA: The prostate is mildly enlarged. Seminal vesicles appear normal. OSSEOUS STRUCTURES: Unremarkable. CT/CT abdomen pelvis w IV con IMPRESSION: 1. Marked inflammatory change involving the entire colon with marked dilatation of the cecum. Findings are consistent with active inflammatory bowel disease. 2. Incidental note made of hepatomegaly and mild periportal edema. Fleischner guidelines were followed. Electronically signed by: Marty Quinteros MD 04/09/2024 08:31 PM EST RP
--- NOTE | 2024-04-09 12:07 | ED.GENADULT ---
HPI - General Adult General Chief complaint: Abdominal Pain Stated complaint: Fatigued Time Seen by Provider: 04/09/24 17:09 Source: patient Limitations: no limitations History of Present Illness ED Provider: Rosalina Hong PA-C HPI narrative: Patient is a 23 year old male with a history of Crohn's Disease who presents with complaints of profuse bloody diarrhea, fatigue, and 9/10 RLQ abdominal pain. His diarrhea has been worsening and he states it is worse at night. It has been getting increasingly more bloody, and now is significant BRB. He has multiple episodes per day. He is unable to sleep and feels extremely fatigued. He also states that recently he has become short of breath and developed a significant headache. He also mentions that he has been feeling dizzy lately. He mentions that the last time he was seen in the ED, his blood counts were low, and that he feels worse now than he did at that point. Patient was being treated with Humira until the beginning of this year when he changed health insurance plans and was unable to see that provider. He has not been able to find a new provider since that time and therefore has been unmedicated. Patient denies sick contacts, upper respiratory symptoms, and trauma to the abdomen. Related Data Previous Rx's ?Medication ?Instructions ?Recorded acetaminophen 500 mg tablet 500 mg PO Q6H PRN pain or fever 02/16/21 (Tylenol Extra Strength) #20 tabs naproxen 500 mg tablet 500 mg PO BID PRN pain 10 days #20 02/16/21 tabs ondansetron 4 mg disintegrating 4 mg PO Q8H PRN nausea and 09/11/21 tablet vomiting #10 tabs acetaminophen 500 mg capsule 500 mg PO QID PRN fever or pain 07/07/23 #14 caps ibuprofen 600 mg tablet 600 mg PO TID PRN fever or pain 07/07/23 #14 tabs nirmatrelvir 300 mg (150 mg See Rx Instructions PO .COMPLEX 07/07/23 x2)-ritonavir 100 mg tablet,dose #30 ea pack (Paxlovid) prednisone 20 mg tablet 40 mg (2 x 20 mg) PO DAILY 5 days 12/12/23 #10 tabs Allergies Allergy/AdvReac Type Severity Reaction Status Date / Time No Known Allergies Allergy Verified 04/09/24 12:10 Review of Systems Review of Systems: Yes all other systems are reviewed and are negative Constitutional: Constitutional: Reports difficulty sleeping, Denies excessive sweating, Reports fatigue, Denies fever(s), Reports headache(s), Reports lethargy, Reports weakness and Denies weight gain Eyes: Eyes: Denies change in vision, Denies loss of vision and Denies eye pain ENT: Reports dizziness, Reports headache(s), Denies post nasal drip, Denies tinnitus and Denies sore throat Cardiovascular: Cardiovascular: Denies Abdominal Distension, Denies chest pain, Denies Epigastric Pain, Denies syncope, Reports rapid heart rate, Denies leg edema, Reports lightheadedness and Denies dyspnea Respiratory: Respiratory: Denies cough, Denies dyspnea and Denies wheezing Gastrointestinal: Gastrointestinal: Reports abdominal pain, Denies melena, Reports bloating, Reports hematochezia, Denies constipation, Reports GI cramping, Reports diarrhea, Reports loose stools, Denies nausea and Denies vomiting Genitourinary: Genitourinary: Denies hematuria, Denies dysuria and Denies urinary frequency Musculoskeletal: Musculoskeletal: Denies myalgias, Denies arthralgias, Denies joint swelling, Denies limited range of motion, Denies numbness, Denies stiffness and Denies tingling Integumentary/Breasts: Skin/Breast: Denies alopecia, Denies lesions, Denies rash and Denies wounds Neurologic: Reports dizziness, Denies syncope, Reports headache(s), Denies loss of vision, Denies numbness, Denies tingling and Reports weakness Psychiatric: Psychiatric: Denies homicidal ideation and Denies suicidal ideation Endocrine: Endocrine: Denies excessive sweating, Reports fatigue, Denies flushing, Denies heat intolerance, Denies polyphagia and Denies polyuria Allergic/Immunologic: Allergic/Immunologic: Denies wheezing PMFSH Past Medical History Attestation statement: The following information was validated with the patient. Medical History Acute Crohn's disease Social History Social History Alcohol intake: never Patient Tobacco Use Status: Never used Tobacco Advance Directives: No Advance Directives Information Provided: Yes Physical Exam ED Vital Signs: Vital Signs - 24 hr 04/09/24 12:08 04/09/24 18:04 04/09/24 18:47 Temperature 99.8 F 100 F Pulse Rate 129 H 101 H 94 Respiratory Rate 18 16 16 Blood Pressure 109/74 114/71 110/61 Pulse Oximetry 100 100 100 Oxygen Delivery Method Room Air Room Air Room Air 04/09/24 19:02 04/09/24 20:00 04/09/24 22:00 Temperature 98.3 F 97.7 F 98.7 F Pulse Rate 89 81 80 Respiratory Rate 16 20 16 Blood Pressure 110/61 99/48 L 101/49 L Pulse Oximetry 100 100 98 Oxygen Delivery Method Room Air Room Air Room Air BMI result Body Mass Index 17.0 Const General: cooperative, healthy appearing, comfortable, no acute distress, well developed and tired appearing; No anxious or diaphoretic Nutritional Appearance: average body habitus Orientation/consciousness: patient oriented x3 Limitations: no limitations HENMT Head: Yes normal to inspection, Yes normocephalic and Yes atraumatic Eyes General: appearance normal, both eyes and all related structures Visual [place]: normal visual [place]gas by confrontation Alignment and Position: alignment normal and position normal Periorbital: periorbital findings normal Eyelids: Yes eyelids normal Conjunctivae: conjunctivae normal Sclerae: sclerae normal Corneas: corneas normal Pupils: Equal, round and reactive pupils present EOM: EOMs intact bilaterally Neck Neck: Yes normal visual inspection, Yes full ROM and Yes no meningeal signs Resp Effort & Inspection: normal respiratory effort, able to speak in complete sentences, no audible wheezes, no cough, not labored and no use of accessory muscles Auscultation: clear to auscultation bilaterally Cardio Jugular venous distension: no JVD Rate: tachycardic Rhythm: regular rhythm Heart sounds: S1 normal heart sound present and S2 normal heart sound present GI Inspection: Yes normal to inspection, No distended and No visible herniation Palpation (GI): Soft to palpation, not firm, nontender, no guarding, not rigid, no hepatomegaly and no splenomegaly General: Yes no CVA tenderness Back/Spine/Pelvis Back: no CVA tenderness Skin Other: warm and dry, no rash General skin exam: no rashes or lesions noted and no erythema Neuro General: patient oriented x3, moves all extremities, no meningeal signs, no focal motor deficits and CN's II-XI intact bilaterally Cranial nerves: Yes CN's II-XII intact bilaterally, Yes Equal, round and reactive pupils present and Yes Bilaterally intact EOM present Cognition (Neuro): normal cognition Extrem General: Yes normal to inspection, Yes full ROM and Yes capillary refill normal Psych Other: calm and cooperative Appearance: grossly normal Mental Status: mental status grossly normal Speech and movement: Normal speech and movement present and Clear speech present Affect: normal affect Attitude: cooperative Thought process: Normal thought process present Thought content: Normal thought content present Insight: Good insight present (Psych) Judgement: Good judgement present (Psych) Course Course Course Narrative: This is a rapid medical exam performed by Pita Slater NP: Additional HPI, ROS, PE not included below will be deferred to primary provider. Patient is a 23-year-old male with history of Crohns presenting with complaint of frequent bowel movements, fatigue. Not currently on any medications. Plan: labs, viral swabs Consultations Consultation #1: paged Dr. Weems for consult he recommends Antibiotics and solumedrol 20 mg IV q8 hrs, check GI stool pcr and c diff.....Surgical consult in morning and kub in morning to check the cecal dilation Time: 23:17 Medications Administered Discontinued Medications Generic Name Dose Route Start Last Admin Trade Name Freq PRN Reason Stop Dose Admin Ceftriaxone Sodium 2 gm 04/09/24 17:24 04/09/24 18:16 Ceftriaxone Sodium 2 Gm Vial IVPUSH 04/09/24 17:25 2 gm ONCE ONE Administration Sodium Chloride 1,000 mls @ 999 mls/hr 04/09/24 17:30 04/09/24 18:06 Ns IV 04/09/24 18:30 Not Given .Q1H1M ESHA Sodium Chloride 1,518 mls @ 1,518 mls/hr 04/09/24 17:24 04/09/24 18:44 Ns 30 ml/kg infuse over 1 hr (1518 ml) 04/09/24 18:23 Infused IV Infusion .Q1H STA Sodium Chloride 1,000 mls @ 999 mls/hr 04/09/24 21:30 04/09/24 21:57 Ns IV 04/09/24 22:30 Infused .Q1H1M ESHA Infusion Iohexol 85 ml 04/09/24 19:23 04/09/24 19:24 Iohexol 350 Mg/Ml 100 Ml Infus..Btl IV 04/09/24 19:24 85 ml ONCE ONE Administration Ketorolac Tromethamine 15 mg 04/09/24 17:25 04/09/24 18:16 Ketorolac Tromethamine 15 Mg/Ml Vial IVPUSH 04/09/24 17:26 15 mg ONCE ONE Administration Methylprednisolone Sodium Succinate 125 mg 04/09/24 22:02 04/09/24 22:10 Methylprednisolone Sod Succ 125 Mg/2 Ml Vial IVPUSH 04/09/24 22:03 125 mg ONCE ONE Administration Morphine Sulfate 4 mg 04/09/24 17:22 04/09/24 18:16 Morphine Sulfate 4 Mg/Ml Cartridge IVPUSH 04/09/24 17:23 4 mg ONCE ONE Administration Protocol Medical Decision Making Medical Decision Making MDM Narrative: I Rosalina Hong PA-C have personally assessed and manage the patient, Korin ENAMORADO observed and helped to formulate his documentation Patient is a 23 year old male with a history of Crohn's Disease who presents with complaints of profuse bloody diarrhea, fatigue, and 9/10 RLQ abdominal pain. His diarrhea has been worsening and he states it is worse at night. It has been getting increasingly more bloody, and now is significant BRB. He has multiple episodes per day. He is unable to sleep and feels extremely fatigued. He reports abdominal bloating, especially at nighttime. He also states that recently he has become short of breath and developed a significant headache. He also mentions that he has been feeling dizzy lately. He mentions that the last time he was seen in the ED, his blood counts were low, and that he feels worse now than he did at that point. Patient was being treated with Humira until the beginning of this year when he changed health insurance plans and was unable to see that provider. He has not been able to find a new provider since that time and therefore has been unmedicated. Patient denies sick contacts, upper respiratory symptoms, and trauma to the abdomen. Patient has a PMH of Crohn's Disease DDx: Crohn's, UC, IBS, anemia, gastroenteritis, Lupus, C. diff infection, hyperthyroidism, hemorrhoid/fissure, sepsis Plan: As the patient has a known history of Crohns and has been unmedicated for several months, I believe that this is the cause of his symptoms. Will assess for other causes. Due to his significant bloody stool, it is possible that he has developed anemia. While anemia is common in those with Crohns disease, patient is fatigued, tachycardic on exam, and appears pale. Will assess with CBC. Also considered UC as this would be more likely to cause bloody diarrhea, however as the patient has a history of Crohns, pain is primarily in the RLQ, and patient is severely fatigued, I think this is less likely. Also considered IBS, however given the significant symptoms, blood in stool, and known PMH, this is unlikely. If this were gastroenteritis, it is unlikely that symptoms would have lasted for months. Patient also denies sick contacts. Thought about hyperthyroidism, given that patient has tachycardia, diarrhea, and fatigue, however there is no goiter, patient does not mention heat intolerance, and does not mentions nervousness. Will assess for Crohn's flare up first. Thought about Lupus, however patient denies joint pain, fever, and rashes, making this less likely. Will rule out other causes first. I think hemorrhoid/fissure is unlikely, considering the history of crohns and significant blood in stool. Also thought about a C. diff infection, however given that his symptoms dissipated when he was on Humira, he denies abx use prior to symptoms starting, and he denies distension, I believe it is more likely something else. I think it is more likely that he is having a flare up of his Crohn's disease with subsequent anemia. Per Rosalina Hong PA-C I am concerned the patient is having an active flare, his H&H have dropped further. Screening labs including inflammatory markers were ordered from triage. The patient has a low-grade temperature, soft pressures is tachycardic. I am also considering sepsis. We will add blood cultures, lactic acid and start empiric ceftriaxone. He will receive the 30 mL/kg of IV fluid resuscitation per our sepsis protocol. Giving Toradol. I have independently reviewed the following tests: Labs: Anemic, 8.3 and 28.1 respectively, no overall leukocytosis,ESR 31, lactic 0.7, CRP 9.31 CT abd pelvis: CT/CT abdomen pelvis w IV con IMPRESSION: 1. Marked inflammatory change involving the entire colon with marked dilatation of the cecum. Findings are consistent with active inflammatory bowel disease. 2. Incidental note made of hepatomegaly and mild periportal edema. Fleischner guidelines were followed. Electronically signed by: Marty Quinteros MD 04/09/2024 08:31 PM [facility] will start IV steroid Lab Data 04/09/24 12:31 04/09/24 12:31 Labs: Lab Results 04/09/24 04/09/24 04/09/24 Range/Units 12:31 17:54 18:11 WBC 5.2 (4.8-10.8) X10*3/uL RBC 4.20 L (4.60-5.80) X10*6/uL Hgb 8.3 L (14.0-18.0) g/dl Hct 28.1 L (42.0-52.0) % MCV 66.9 L (80.0-98.0) fL MCH 19.8 L (27.0-33.0) pg MCHC 29.5 L (31.0-36.0) g/dl RDW 18.3 H (11.0-16.0) % Plt Count 440 H (160-400) X10*3/uL MPV 7.7 L (9.4-12.4) fL Immature Gran % (Auto) 0.4 (0.0-0.4) % Neut % (Auto) 68.6 (45-73) % Lymph % (Auto) 7.9 L (20-40) % [place] % (Auto) 21.2 H (2-11) % Eos % (Auto) 1.3 (0-4) % Baso % (Auto) 0.6 (0-2) % Lymph # (Auto) 0.4 L (1.2-4.9) X10*3/uL [place] # (Auto) 1.1 (0.1-1.2) X10*3/uL Eos # (Auto) 0.1 (0.0-0.4) X10*3/uL Baso # (Auto) 0.0 (0.0-0.2) X10*3/uL Abs Immat Gran (auto) 0.02 (0.00-0.03) X10*3/uL Absolute Neuts (auto) 3.6 (2.0-8.3) x10*3/uL Absolute Nucleated RBC 0.000 (0.0-0.012) X10*3/uL Nucleated RBC % (auto) 0.0 (0.0-0.2) /100WBC Smear Tech's Comments VERIFIED ESR 31 H (0-15) MM/HR Sodium 135 (135-145) mmol/L Potassium 4.1 (3.3-5.1) mmol/L Chloride 102 (96-108) mmol/L Carbon Dioxide 25 (22-29) mmol/L Anion Gap 12 (12-20) BUN 10 (9-16) mg/dL Creatinine 0.83 (0.5-1.4) mg/dL Estim Creat Clear Calc 97.3 Estimated GFR > 60 Random Glucose 103 (60-115) mg/dL Lactic Acid 0.7 (0.5-2.0) mmol/L Calcium 8.6 (8.4-10.2) mg/dL Magnesium 1.7 (1.6-2.6) mg/dL Total Bilirubin 0.3 (0.0-1.0) mg/dL AST 17 (5-37) U/L ALT 6 (0-40) U/L Alkaline Phosphatase 80 (39-117) U/L C-Reactive Protein 9.31 H (< or = 0.50) mg/dL Total Protein 6.7 (6.5-8.0) g/dL Albumin 2.7 L (3.5-5.0) g/dL Influenza Type A (PCR) NEGATIVE (Negative) Influenza Type B (PCR) NEGATIVE (Negative) RSV RNA Qual (PCR) NEGATIVE (Negative) SARS-CoV-2 RNA (RT-PCR) NEGATIVE (Negative) Blood Type B Negative Antibody Screen NEGATIVE Discharge Plan Discharge Clinical Impression: Crohn's colitis, Anemia Patient Disposition: Admitted As Inpatient Print Language: Croatian
[2024-04-09 12:08] VITALS: BP 109/74; PULSE 129; RESP 18; TEMP 37.7; O2SAT 100; BMI 17.0
[2024-04-09 12:36] LABS: Basophils Percent Auto 0.6 % (0-2); Eosinophils Absolute Auto 0.1 X10*3/uL (0.0-0.4); Eosinophils Percent Auto 1.3 % (0-4); Hematocrit 28.1 % (42.0-52.0); Hemoglobin 8.3 g/dl (14.0-18.0); Imm Gran Abs Auto 0.02 X10*3/uL (0.00-0.03); Imm Gran Pct Auto 0.4 % (0.0-0.4); Lymphocytes Absolute Auto 0.4 X10*3/uL (1.2-4.9); Lymphocytes Percent Auto 7.9 % (20-40); MANUAL DIFF FLAG SCAN; Mean Corpuscular HGB Conc 29.5 g/dl (31.0-36.0); Mean Corpuscular Hemoglobin 19.8 pg (27.0-33.0); Mean Corpuscular Volume 66.9 fL (80.0-98.0); Mean Platelet Volume 7.7 fL (9.4-12.4); Monocytes Absolute Auto 1.1 X10*3/uL (0.1-1.2); Monocytes Percent Auto 21.2 % (2-11); Neutrophils Absolute Auto 3.6 x10*3/uL (2.0-8.3); Neutrophils Percent Auto 68.6 % (45-73); Platelet Count 440 X10*3/uL (160-400); Red Cell Distribution Width 18.3 % (11.0-16.0); SCAN SMEAR FLAG 1; White Blood Count 5.2 X10*3/uL (4.8-10.8)
[2024-04-09 12:55] LABS: Alanine Aminotransferase 6 U/L (0-40); Albumin Level 2.7 g/dL (3.5-5.0); Alkaline Phosphatase 80 U/L (39-117); Anion Gap 12 (12-20); Aspartate Amino Transferase 17 U/L (5-37); Bilirubin Total 0.3 mg/dL (0.0-1.0); Blood Urea Nitrogen 10 mg/dL (9-16); Calcium 8.6 mg/dL (8.4-10.2); Carbon Dioxide 25 mmol/L (22-29); Chloride 102 mmol/L (96-108); Creatinine Clr Calc Pharmacy 97.3; Estimated Glomerular Filt Rate > 60; Glucose Random 103 mg/dL (60-115); Magnesium 1.7 mg/dL (1.6-2.6); Potassium 4.1 mmol/L (3.3-5.1); Sodium 135 mmol/L (135-145); Total Protein 6.7 g/dL (6.5-8.0)
[2024-04-09 13:28] LABS: Influenza A PCR NEGATIVE (Negative); Influenza B PCR NEGATIVE (Negative); Resp Syncy Virus RNA Qual PCR NEGATIVE (Negative); SARS COV2 PCR INHOUSE NEGATIVE (Negative)
[2024-04-09 13:53] LABS: SLIDE REVIEW VERIFIED
[2024-04-09] MEDS: SODIUM CHLORIDE 1518 ML IV (17:50)
[2024-04-09 18:04] VITALS: BP 114/71; PULSE 101; RESP 16; TEMP 37.7; O2SAT 100
--- NOTE | 2024-04-09 18:05 | PC.NURSE ---
1750 IV established and fluids infusing at this time. first set of cultures sent. vss.
[2024-04-09 18:16] LABS: C Reactive Protein 9.31 mg/dL (< or = 0.50)
[2024-04-09] MEDS: Ketorolac Tromethamine 15 MG/ML VIAL IVPUSH (18:16)
[2024-04-09] MEDS: Morphine Sulfate 4 MG/ML CARTRIDGE IVPUSH (18:16)
[2024-04-09] MEDS: cefTRIAXone sodium 2 GM VIAL IVPUSH (18:16)
[2024-04-09 18:17] LABS: Lactic Acid 0.7 mmol/L (0.5-2.0)
[2024-04-09 18:39] LABS: Erythrocyte Sedimentation Rate 31 MM/HR (0-15)
[2024-04-09 18:47] VITALS: BP 110/61; PULSE 94; RESP 16; O2SAT 100
--- NOTE | 2024-04-09 18:49 | PC.NURSE ---
fluids have infused, patient reports no pain at this time s/p pain medication administration.
[2024-04-09 19:02] VITALS: BP 110/61; PULSE 89; RESP 16; TEMP 36.8; O2SAT 100
[2024-04-09] MEDS: iohexoL 350 MG/ML 100 ML INFUS..BTL 85 ML IV (19:24)
[2024-04-09 20:00] VITALS: BP 99/48; PULSE 81; RESP 20; TEMP 36.5; O2SAT 100
[2024-04-09] MEDS: 0.9 % Sodium Chloride 1,000 ML 999 ML IV (21:34)
[2024-04-09 22:00] VITALS: BP 101/49; PULSE 80; RESP 16; TEMP 37.1; O2SAT 98
[2024-04-09] MEDS: methylPREDNISolone Sod Succ 125 MG/2 ML VIAL IVPUSH (22:10)
[2024-04-09] MEDS: metroNIDAZOLE/NS 500 MG/100 ML PIGGYBACK 100 MG IV (23:23)
[2024-04-10 00:11] VITALS: BP 99/53; PULSE 80; RESP 16; TEMP 36.7; O2SAT 100
[2024-04-10 00:16] LABS: Appearance Urine Clear; Color Urine Yellow; Glucose Urine UA Negative (Negative); Leukocyte Esterase Urine Negative (Negative); Nitrite Urine Negative (Negative); PH 5.5 (5.0-9.0); Urine Blood Negative (Negative); Urine Ketones 15 mg/dL (Negative); Urine Protein Negative (Neg-Trace)
--- NOTE | 2024-04-10 01:47 | P.HPHOSP_ITS ---
History of Present Illness Date of Service: 04/10/24 Attending physician on admission: Pebbles Kellogg Chief Complaint: Diarrhea, abdominal pain Romaine Ahmadi is a 23 years old man with past medical history significant for Crohn's disease presents to the emergency department complaining of worsening right-sided abdominal pain associated with distention over the last several days associated with intermittent bloody watery. The pain is colicky in nature, intensity 9/10 and has not radiations. Diarrhea denies fever, chills, nausea or vomiting. Denied any acute urinary symptoms. Denied any acute cardiopulmonary symptoms. Denied alcohol abuse, marijuana use or tobacco smoking. He is not taking any medication for Crohn's. In the ED, he was found to have stable vital signs. Blood workup showed no leukocytosis. CRP is 9.31. Hemoglobin is 8.3 (9.06 December 2023). Platelets are normal. There are no electrolyte imbalances. Renal function and LFTs are normal. There is no lactic acidosis. Abdomen pelvis CT scan showed finding consistent with active inflammatory bowel disease, hepatomegaly and mild portal edema. ED tx: Metronidazole 500 mg IV, Solu-Medrol 125 mg IV, NS 3.5 L bolus, ceftriaxone 2 g, ketorolac 15 mg IV, morphine 4 mg IV Review of Systems 2 Review of Systems: All 12 systems were reviewed and normal except as noted in HPI. [facility] Medical History Acute Crohn's disease Social History Alcohol intake: never Patient Tobacco Use Status: Never used Tobacco Advance Directives: No Advance Directives Information Provided: Yes Meds Allergies Allergy/AdvReac Type Severity Reaction Status Date / Time No Known Allergies Allergy Verified 04/09/24 12:10 Active Medications: Current Medications Acetaminophen (Acetaminophen 325 Mg Tablet) 975 mg PO Q6H PRN PRN Reason: Pain, Mild (Pain Scale 1-3), fever or headache Melatonin (Melatonin 3 Mg Tablet) 6 mg PO BEDTIME PRN PRN Reason: Insomnia Sodium Chloride (0.9 % Sodium Chloride Flush 3 Ml Syringe) 3 ml IVFLUSH QSHIFT [facility] Physical Exam 2 Vital Signs and Narrative: Vital Signs: Last Vital Signs Temp 98.0 F 04/10/24 00:11 Pulse 80 04/10/24 00:11 Resp 16 04/10/24 00:11 BP 99/53 L 04/10/24 00:11 Pulse Ox 100 04/10/24 00:11 O2 Del Method Room Air 04/10/24 00:11 BMI result Body Mass Index 17.0 Constitutional - Awake and Alert, No apparent distress. Malnourished. HEENT - Normal sclear. Dry oral mucosa. Heart- S1S2, RRR, No murmurs. Lungs - Normal lung expansion, Normal respiratory effort, No respiratory distress, CTA bilaterally Abdomen - NT / ND; +BS; No rebound or guarding Extremities - no calf tenderness bilaterally, no swelling Musculoskeletal - Generalized muscular atrophy. Skin - Warm/Dry Neurological - Alert & oriented x3. No focal weakness grossly noted. Psychological - Appropriate affect Results Labs 04/09/24 12:31 04/09/24 12:31 Labs: Laboratory Results - last 24 hr 04/09/24 04/09/24 04/09/24 12:31 17:54 18:11 MCV 66.9 L MCH 19.8 L MCHC 29.5 L RDW 18.3 H Plt Count 440 H MPV 7.7 L Immature Gran % (Auto) 0.4 Neut % (Auto) 68.6 Lymph % (Auto) 7.9 L [place] % (Auto) 21.2 H Eos % (Auto) 1.3 Baso % (Auto) 0.6 Lymph # (Auto) 0.4 L [place] # (Auto) 1.1 Eos # (Auto) 0.1 Baso # (Auto) 0.0 Abs Immat Gran (auto) 0.02 Absolute Neuts (auto) 3.6 Absolute Nucleated RBC 0.000 Nucleated RBC % (auto) 0.0 Smear Tech's Comments VERIFIED ESR 31 H Anion Gap 12 Estim Creat Clear Calc 97.3 Estimated GFR > 60 Random Glucose 103 Lactic Acid 0.7 Calcium 8.6 Magnesium 1.7 Total Bilirubin 0.3 AST 17 ALT 6 Alkaline Phosphatase 80 C-Reactive Protein 9.31 H Total Protein 6.7 Albumin 2.7 L Urine Color Urine Appearance Urine pH Ur Specific [place] Urine Protein Urine Glucose (UA) Urine Ketones Urine Blood Urine Nitrite Ur Leukocyte Esterase Influenza Type A (PCR) NEGATIVE Influenza Type B (PCR) NEGATIVE RSV RNA Qual (PCR) NEGATIVE SARS-CoV-2 RNA (RT-PCR) NEGATIVE Blood Type B Negative Antibody Screen NEGATIVE 04/09/24 23:59 MCV MCH MCHC RDW Plt Count MPV Immature Gran % (Auto) Neut % (Auto) Lymph % (Auto) [place] % (Auto) Eos % (Auto) Baso % (Auto) Lymph # (Auto) [place] # (Auto) Eos # (Auto) Baso # (Auto) Abs Immat Gran (auto) Absolute Neuts (auto) Absolute Nucleated RBC Nucleated RBC % (auto) Smear Tech's Comments ESR Anion Gap Estim Creat Clear Calc Estimated GFR Random Glucose Lactic Acid Calcium Magnesium Total Bilirubin AST ALT Alkaline Phosphatase C-Reactive Protein Total Protein Albumin Urine Color Yellow Urine Appearance Clear Urine pH 5.5 Ur Specific [place] 1.020 Urine Protein Negative Urine Glucose (UA) Negative Urine Ketones 15 Urine Blood Negative Urine Nitrite Negative Ur Leukocyte Esterase Negative Influenza Type A (PCR) Influenza Type B (PCR) RSV RNA Qual (PCR) SARS-CoV-2 RNA (RT-PCR) Blood Type Antibody Screen Imaging Radiologist's Impressions: Impressions Abdomen/Pelvis CT 04/09/24 17:22 IMPRESSION: 1. Marked inflammatory change involving the entire colon with marked dilatation of the cecum. Findings are consistent with active inflammatory bowel disease. 2. Incidental note made of hepatomegaly and mild periportal edema. Fleischner guidelines were followed. Electronically signed by: Marty Quinteros MD 04/09/2024 08:31 PM [facility] Assessment and Plan (1) Crohn's colitis: Status: Acute (2) Anemia: Qualifiers: Anemia type: unspecified type Qualified Code(s): D64.9 - Anemia, unspecified Status: Acute Plan Romaine Ahmadi is a 23 y/o man admitted with: * Acute Crohn's disease. Admit to hospitalist service. Liquid diet. Continue IV steroids and empiric IV antibiotic therapy with. IV fluids. Check GI panel and C diff. CRP daily. GI consult. * Anemia, worsening. Secondary to above (bloody diarrhea). Continue to monitor H&H. DVT prophylaxis: SCDs. Code status: Full. Patient will need hospitalization for at least 2 midnights for Crohn's flare treatment with IV antibiotics and IV steroids. Patient also will need evaluation by subspecialty. Quality Stroke Does the patient have a stroke diagnosis?: No VTE Prior VTE?: No VTE Risk Level:: Medical - moderate - high VTE Device Contraindication: N/A - Device Ordered VTE Drug Contraindication: Treatment Not Indicated
[2024-04-10 01:55] VITALS: BP 98/51; PULSE 75; RESP 17; TEMP 36.7; O2SAT 99
--- NOTE | 2024-04-10 02:04 | MHC.EDTECH ---
PT AMBULATES INDEPENDENTLY
[2024-04-10] MEDS: Lactated Ringers 1,000 ML 150 ML IVCONT ×3 (02:08→17:14)
[2024-04-10] MEDS: methylPREDNISolone Sod Succ 40 MG/ML VIAL 20 MG IVPUSH ×3 (03:56→19:59)
[2024-04-10 05:08] LABS: Basophils Percent Auto 0.4 % (0-2); Hematocrit 28.2 % (42.0-52.0); Hemoglobin 8.4 g/dl (14.0-18.0); Imm Gran Abs Auto 0.02 X10*3/uL (0.00-0.03); Imm Gran Pct Auto 0.4 % (0.0-0.4); Lymphocytes Absolute Auto 0.2 X10*3/uL (1.2-4.9); Lymphocytes Percent Auto 2.9 % (20-40); MANUAL DIFF FLAG SCAN; Mean Corpuscular HGB Conc 29.8 g/dl (31.0-36.0); Mean Corpuscular Hemoglobin 19.8 pg (27.0-33.0); Mean Corpuscular Volume 66.5 fL (80.0-98.0); Mean Platelet Volume 8.3 fL (9.4-12.4); Monocytes Percent Auto 0.7 % (2-11); Neutrophils Absolute Auto 5.2 x10*3/uL (2.0-8.3); Neutrophils Percent Auto 95.6 % (45-73); Platelet Count 424 X10*3/uL (160-400); Red Blood Count 4.24 X10*6/uL (4.60-5.80); Red Cell Distribution Width 18.3 % (11.0-16.0); SCAN SMEAR FLAG 1; White Blood Count 5.5 X10*3/uL (4.8-10.8)
[2024-04-10 05:24] LABS: Anion Gap 13 (12-20); Blood Urea Nitrogen 6 mg/dL (9-16); C Reactive Protein 9.52 mg/dL (< or = 0.50); Calcium 8.3 mg/dL (8.4-10.2); Carbon Dioxide 22 mmol/L (22-29); Chloride 106 mmol/L (96-108); Creatinine Clr Calc Pharmacy 132.4; Estimated Glomerular Filt Rate > 60; Glucose Random 99 mg/dL (60-115); Potassium 4.2 mmol/L (3.3-5.1); Sodium 137 mmol/L (135-145)
[2024-04-10 05:38] LABS: SLIDE REVIEW VERIFIED
--- NOTE | 2024-04-10 06:43 | PM.GICN ---
History of Present Illness Data of Consult Service Date: 04/10/24 Primary Care Provider: None Physician HPI Reason for consult: IBD flare 23 years old man with past medical history significant for Crohn's disease who I am seeing for assessment Per review of [facility] EMR he was diagnosed with crohns 2020 with colonoscopy revealing granulomas and metapalsia in the colon. He was commenced on humira which seemed to work well at the start but may have stopped working after a while. He lost insurance and stopped getting the medication since new year. Since then he has noted progressively worsening diarrhea, going 10 time a day with occ fresh blood, crampy 9/10 right sided abdominal pain worse with food and no relieving factors or radiation.. Denies fever, chills, or vomiting. Denied any acute urinary symptoms. Denied any acute cardiopulmonary symptoms. Denied alcohol abuse, marijuana use or tobacco smoking and no use of nsaids. he also noted weight loss of about 20# with poor appetite and nausea. LABS: CRP is 9.31. Hemoglobin is 8.3 (9.06 December 2023). Platelets are normal. There are no electrolyte imbalances. Renal function and LFTs are normal. There is no lactic acidosis c diff neg Imaging: Abdomen pelvis CT scan showed finding consistent with active inflammatory bowel disease, hepatomegaly and mild portal edema. cecum is distended Review of Systems Review of Systems: Constitutional : + Weight loss, No Fever, No Chills ENT/Mouth : No sore throat, No Rhinorrhea Eyes: No Swelling, No Redness Cardiovascular : No Chest Pain, No SOB, No Edema Respiratory : No Cough, No Sputum, No Wheezing Gastrointestinal : see HPI Genitourinary : NO Dysuria, No Urinary Frequency, No Hematuria, No Urgency Musculoskeletal : + joint pain-lower back, No Myalgias, No Joint Swelling Skin : No Skin Lesions, No rash Neuro : + Weakness, No Numbness, No Dizziness, No Headache Psych : No Anxiety/Panic, No Depression Heme/Lymph: No Bruising, No Lymphadenopathy Endocrine : No Polyuria, No Polydipsia All other systems reviewed and are negative. [facility] Past Medical History Medical History Acute Crohn's disease Family History Pertinent family history: no fh of ibd Social History Social History Household Members: Family Housing: House Do you presently have visiting nurse or other home services: No Alcohol intake: never Patient Tobacco Use Status: Never used Tobacco service: No Meds Allergies Allergy/AdvReac Type Severity Reaction Status Date / Time No Known Allergies Allergy Verified 04/09/24 12:10 Active Medications: Current Medications Acetaminophen (Acetaminophen 325 Mg Tablet) 975 mg PO Q6H PRN PRN Reason: Pain, Mild (Pain Scale 1-3), fever or headache Ceftriaxone Sodium (Ceftriaxone Sodium 1 Gm Vial) 1 gm IVPUSH Q24H [facility] Lactated Ringer's (Lr) 1,000 mls @ 150 mls/hr IVCONT .Q6H40M [facility] Last Admin: 04/10/24 02:08 Dose: 150 mls/hr Metronidazole (Flagyl) 500 mg in 100 mls @ 100 mls/hr IV Q8H [facility] Melatonin (Melatonin 3 Mg Tablet) 6 mg PO BEDTIME PRN PRN Reason: Insomnia Methylprednisolone Sodium Succinate (Methylprednisolone Sod Succ 40 Mg/Ml Vial) 20 mg IVPUSH Q8H [facility] Last Admin: 04/10/24 03:56 Dose: 20 mg Ondansetron HCl (Ondansetron Hcl 4 Mg/2 Ml Vial) 4 mg IVPUSH Q8H PRN PRN Reason: Nausea and Vomiting Sodium Chloride (0.9 % Sodium Chloride Flush 3 Ml Syringe) 3 ml IVFLUSH QSHIFT [facility] Home Medications ?Medication ?Instructions ?Recorded ?Confirmed ?Last Taken ?Type No Known Home Meds 04/10/24 04/10/24 Unknown History Physical Exam Vital Signs: Vital Signs: Last Vital Signs Temp 98.0 F 04/10/24 01:55 Pulse 75 04/10/24 01:55 Resp 17 04/10/24 01:55 BP 98/51 L 04/10/24 01:55 Pulse Ox 99 04/10/24 01:55 O2 Del Method Room Air 04/10/24 01:55 BMI result Body Mass Index 17.0 EXAM: GENERAL: The patient is frail VITAL SIGNS:see workflow HEENT: Nonicteric sclerae, PERRLA, EOMI. Oropharynx clear. Moist mucous membranes. Conjunctivae appear well perfused. No thyroid mass. CHEST: Chest wall is nontender. HEART: Regular rate and rhythm without murmurs. LUNGS: Clear to auscultation bilaterally. ABDOMEN: Soft, positive bowel sounds, diffusely tender, no organomegaly.no flank tenderness SKIN: possible tinea on forehead NEUROLOGIC: Cranial nerves II-XII intact without motor/sensory deficit. Psych: normal affect Results Labs 04/10/24 04:24 04/10/24 04:24 Labs: Short CBC 04/09/24 04/10/24 Range/Units 12:31 04:24 WBC 5.2 5.5 (4.8-10.8) X10*3/uL Hgb 8.3 L 8.4 L (14.0-18.0) g/dl Hct 28.1 L 28.2 L (42.0-52.0) % Plt Count 440 H 424 H (160-400) X10*3/uL BMP 04/09/24 04/10/24 12:31 04:24 Sodium 135 137 Potassium 4.1 4.2 Chloride 102 106 Carbon Dioxide 25 22 BUN 10 6 L Creatinine 0.83 0.61 Calcium 8.6 8.3 L Liver Function 04/09/24 Range/Units 12:31 Total Bilirubin 0.3 (0.0-1.0) mg/dL AST 17 (5-37) U/L ALT 6 (0-40) U/L Alkaline Phosphatase 80 (39-117) U/L Albumin 2.7 L (3.5-5.0) g/dL Urine 04/09/24 Range/Units 23:59 Urine Color Yellow Urine Appearance Clear Urine pH 5.5 (5.0-9.0) Ur Specific [place] 1.020 (1.005-1.025) Urine Protein Negative (Neg-Trace) mg/dL Urine Glucose (UA) Negative (Negative) mg/dL Imaging CT scan - abdomen: Attestation: I personally reviewed and interpreted this imaging study as follows: (mesenteric stranding and bowel wall enhancement ) Assessment and Plan (1) Crohn's colitis: Qualifiers: Digestive disease complication type: with rectal bleeding Qualified Code(s): K50.111 - Crohn's disease of large intestine with rectal bleeding Status: Acute Plan 1/ Acute on chronic crohn colitis with anemia and active severe disease due to non treatment PLAN: 1/ cont solumedrol 20 mg q8 hr for 24-72 hr then transition to PO pred 2/ Cont with flagyl and cipro due to high risk of bacterial translocation and secondary infection 3/ recommend prophylaxis dose lovenox, due to high risk of DVT even though having some rectal bleeding 4/ daily KUB and surgical consult in case colectomy is required for worsening sx or toxic megacolon 5/ check Tb and hep serolgies and cooper up for o/p remicade Procedures Date of Service Date of Service: 04/10/24
[2024-04-10] MEDS: metroNIDAZOLE/NS 500 MG/100 ML PIGGYBACK 100 MG IV ×2 (07:12→17:14)
--- NOTE | 2024-04-10 07:17 | PC.NURSE ---
patient a&ox3, vss, rr equal/non labored, pt denies pain/discomfort at this time, ivf running per order, pt medicated per order, call webb within reach, will continue to monitor
[2024-04-10 07:18] VITALS: BP 110/54; PULSE 66; RESP 16; TEMP 36.6; O2SAT 100
[2024-04-10 08:00] VITALS: BP 109/60; PULSE 62; RESP 16; TEMP 36.1; O2SAT 98
--- NOTE | 2024-04-10 09:03 | P.CONGS_ITS ---
History of Present Illness Consult details Consult date: 04/10/24 <Gabriella Saul PA-C - Last Filed: 04/10/24 10:13> Requesting physician: Donna Shrestha <LAZARUS Llanos Last Filed: 04/10/24 10:13> Narrative: Romaine Ahmadi is a 23 year old male with past medical history significant for Crohn's disease who presented to the ED with complaints abdominal pain. The pain started in his right abdomen a few days prior to presentation and has progressively worsened. It is intermittent in nature, severe and non radiating. The pain is associated with bloating and bloody stools. He denies nausea, vomiting, fevers, chills. CBC, BMP, LFTs were performed which demonstrated anemia. CT scan abd/pelvis showed a dilated, fluid filled cecum and marked inflammatory change and mucosal thickening involving the entire colon. He was admitted to the hospitalist service for further treatment. He was started on IV abx, IV steroids. He feels somewhat improved this morning. He denies any abdominal pain, denies further bloody stools since admission. He was previously being treated with Humira but changed insurances at the beginning of the year and was unable to see his provider and therefore stopped taking the med. He was last seen in December 2023 for a Crohns flare. <Gabriella Saul PA-C Last Filed: 04/10/24 10:13> Review of Systems 2 Constitutional: Constitutional: Denies chills and Denies fever(s) < LAZARUS Llanos Last Filed: 04/10/24 10:13> ENT: Denies dizziness <LAZARUS Llanos Last Filed: 04/10/24 10:13> Cardiovascular: Cardiovascular: Denies chest pain and Denies dyspnea < LAZARUS Llanos Last Filed: 04/10/24 10:13> Respiratory: Respiratory: Denies dyspnea <LAZARUS Llanos Last Filed: 04/10/24 10:13> Gastrointestinal: Gastrointestinal: Reports as per HPI <LAZARUS Llanos Filed: 04/10/24 10:13> Integumentary/Breasts: Skin/Breast: Denies rash and Denies jaundice < Gabriella Saul PA-C - Last Filed: 04/10/24 10:13> Neurologic: Denies dizziness <LAZARUS Llanos Last Filed: 04/10/24 10:13> [facility] Past Medical History Medical History: Medical History Acute Crohn's disease <ALZARUS lLanos Last Filed: 04/10/24 10:13> Social History Social History: Social History Household Members: Family Housing: House Do you presently have visiting nurse or other home services: No Alcohol intake: never Patient Tobacco Use Status: Never used Tobacco service: No <LAZARUS Llanos Last Filed: 04/10/24 10:13> Meds Allergies/Adverse reactions: Allergies Allergy/AdvReac Type Severity Reaction Status Date / Time No Known Allergies Allergy Verified 04/09/24 12:10 <LAZARUS Llanos Last Filed: 04/10/24 10:13> Active Medications: Current Medications Acetaminophen (Acetaminophen 325 Mg Tablet) 975 mg PO Q6H PRN PRN Reason: Pain, Mild (Pain Scale 1-3), fever or headache Ceftriaxone Sodium (Ceftriaxone Sodium 1 Gm Vial) 1 gm IVPUSH Q24H [facility] Lactated Ringer's (Lr) 1,000 mls @ 150 mls/hr IVCONT .Q6H40M [facility] Last Admin: 04/10/24 07:12 Dose: 150 mls/hr Metronidazole (Flagyl) 500 mg in 100 mls @ 100 mls/hr IV Q8H [facility] Last Admin: 04/10/24 07:12 Dose: 100 mls/hr Melatonin (Melatonin 3 Mg Tablet) 6 mg PO BEDTIME PRN PRN Reason: Insomnia Methylprednisolone Sodium Succinate (Methylprednisolone Sod Succ 40 Mg/Ml Vial) 20 mg IVPUSH Q8H [facility] Last Admin: 04/10/24 03:56 Dose: 20 mg Ondansetron HCl (Ondansetron Hcl 4 Mg/2 Ml Vial) 4 mg IVPUSH Q8H PRN PRN Reason: Nausea and Vomiting Sodium Chloride (0.9 % Sodium Chloride Flush 3 Ml Syringe) 3 ml IVFLUSH QSHIFT [facility] Last Admin: 04/10/24 07:06 Dose: Not Given <LAZARUS Llanos Last Filed: 04/10/24 10:13> Home medications: Home Medications ?Medication ?Instructions ?Recorded ?Confirmed ?Last Taken ?Type No Known Home Meds 04/10/24 04/10/24 Unknown History <LAZARUS Llanos Last Filed: 04/10/24 10:13> Physical Exam 2 Vital Signs: Vital Signs: Last Vital Signs Temp 96.9 F 04/10/24 08:00 Pulse 62 04/10/24 08:00 Resp 16 04/10/24 08:00 BP 109/60 04/10/24 08:00 Pulse Ox 98 04/10/24 08:00 O2 Del Method Room Air 04/10/24 08:00 BMI result Body Mass Index 17.0 <LAZARUS Llanos Last Filed: 04/10/24 10:13> Const: General: comfortable, no acute distress and alert <Gabriella Saul PA-C Last Filed: 04/10/24 10:13> Orientation/consciousness: patient oriented x3 <LAZARUS Llanos Last Filed: 04/10/24 10:13> Resp: Effort & Inspection: normal respiratory effort <LAZARUS Llanos Last Filed: 04/10/24 10:13> GI: Inspection: Yes distended (mild, soft) and No scar <LAZARUS Llanos Last Filed: 04/10/24 10:13> Palpation (GI): Soft to palpation, nontender and no guarding <LAZARUS Llanos Last Filed: 04/10/24 10:13> Skin: General skin exam: pallor <LAZARUS Llanos Last Filed: 04/10/24 10:13> Neuro: General: patient oriented x3 and moves all extremities <LAZARUS Llanos Last Filed: 04/10/24 10:13> Results Labs Result diagrams: 04/10/24 04:24 04/10/24 04:24 <Gabriella Saul PA-C - Last Filed: 04/10/24 10:13> Labs: Abnormal lab results 04/09/24 04/09/24 04/10/24 Range/Units 12:31 17:54 04:24 RBC 4.20 L 4.24 L (4.60-5.80) X10*6/uL Hgb 8.3 L 8.4 L (14.0-18.0) g/dl Hct 28.1 L 28.2 L (42.0-52.0) % MCV 66.9 L 66.5 L (80.0-98.0) fL MCH 19.8 L 19.8 L (27.0-33.0) pg MCHC 29.5 L 29.8 L (31.0-36.0) g/dl RDW 18.3 H 18.3 H (11.0-16.0) % Plt Count 440 H 424 H (160-400) X10*3/uL MPV 7.7 L 8.3 L (9.4-12.4) fL Neut % (Auto) 95.6 H (45-73) % Lymph % (Auto) 7.9 L 2.9 L (20-40) % [place] % (Auto) 21.2 H 0.7 L (2-11) % Lymph # (Auto) 0.4 L 0.2 L (1.2-4.9) X10*3/uL [place] # (Auto) 0.0 L (0.1-1.2) X10*3/uL ESR 31 H (0-15) MM/HR BUN 6 L (9-16) mg/dL Calcium 8.3 L (8.4-10.2) mg/dL C-Reactive Protein 9.31 H 9.52 H (< or = 0.50) mg/dL Albumin 2.7 L (3.5-5.0) g/dL Short CBC 04/09/24 04/10/24 Range/Units 12:31 04:24 WBC 5.2 5.5 (4.8-10.8) X10*3/uL Hgb 8.3 L 8.4 L (14.0-18.0) g/dl Hct 28.1 L 28.2 L (42.0-52.0) % Plt Count 440 H 424 H (160-400) X10*3/uL BMP 04/09/24 04/10/24 12:31 04:24 Sodium 135 137 Potassium 4.1 4.2 Chloride 102 106 Carbon Dioxide 25 22 BUN 10 6 L Creatinine 0.83 0.61 Calcium 8.6 8.3 L Liver Function 04/09/24 Range/Units 12:31 Total Bilirubin 0.3 (0.0-1.0) mg/dL AST 17 (5-37) U/L ALT 6 (0-40) U/L Alkaline Phosphatase 80 (39-117) U/L Albumin 2.7 L (3.5-5.0) g/dL Urine 04/09/24 Range/Units 23:59 Urine Color Yellow Urine Appearance Clear Urine pH 5.5 (5.0-9.0) Ur Specific [place] 1.020 (1.005-1.025) Urine Protein Negative (Neg-Trace) mg/dL Urine Glucose (UA) Negative (Negative) mg/dL All other labs normal. <Gabriella Saul PA-C - Last Filed: 04/10/24 10:13> Imaging Abdominal x-ray: image reviewed <Gabriella Saul PA-C - Last Filed: 04/10/24 10:13> Abdomen CT scan report/results: report reviewed and image reviewed <Gabriella Saul PA-C - Last Filed: 04/10/24 10:13> Assessment and Plan (1) Crohn's colitis: Status: Acute <Gabriella Saul PA-C - Last Filed: 04/10/24 10:13> Patient with a known history of Crohn's disease with the abdominal pain and bloody diarrhea CT scan yesterday showed a dilated cecum He feels much improved Less distention Abdomen soft and benign Continue current care for acute flare up of Crohn's disease Okay to have clear liquids We will follow closely Seen and examined independently <Getachew Kilgore MD - Last Filed: 04/10/24 14:54> 23 year old male with hx of Crohns admitted with abdominal pain, bloody diarrhea found to have Crohns colitis. He has a dilated, fluid filled cecum on CT scan measuring 9cm. Clinically he has improved with supportive measures and his abdomen is benign. At this point no surgical intervention is needed. Can continue IVF, IV steroids, abx. Can have clear liquids. Will continue to follow. Will need outpatient follow up for biologic therapy for Crohns. If worsens would likely require right colectomy, end ileostomy and mucous fistula. Patient comfortable with plan. <Gabriella Saul PA-C - Last Filed: 04/10/24 10:13> Procedures Date of Service Date of Service: 04/10/24 <Gabriella Saul PA-C - Last Filed: 04/10/24 10:13> 04/10/24 <Getachew Kilgore MD - Last Filed: 04/10/24 14:54>
[2024-04-10] MEDS: cefTRIAXone sodium 1 GM VIAL IVPUSH (09:41)
[2024-04-10 09:49] VITALS: BMI 16.9
--- NOTE | 2024-04-10 09:57 | PHA.MEDREC ---
Addendum entered by Susy De RPh 04/10/24 09:58: Reviewed by [facility] Original Note: Pharmacy Consult ? Medication Reconciliation Pharmacy has completed the medication reconciliation. Patient confirmed he is not taking any medications, Prescription or OTC.
--- NOTE | 2024-04-10 10:56 | PM.EVENT ---
Event Note Date of Service: 04/10/24 Event Note: pt see/examined, meds, labs, vitals imaging reviewed. Pt admitted this morning with crohn's flare, awaiting gi consult. continue empiric abx and steroid, ivf, start liquid diet. Time Spent With Patient Time: Total time managing care of this patient today ____ minutes.
--- NOTE | 2024-04-10 12:33 | MHC.CM.PN ---
PT LIVES WITH PARENTS HAS NO SERVIES HAS OWN [facility] PT DOES NOT HAVE A PCP [facility] GIVEN TO PT
--- NOTE | 2024-04-10 12:39 | MHC.CM.PN ---
PT GIVEN PCP BROCHURE
[2024-04-10 13:27] VITALS: BMI 16.9
--- NOTE | 2024-04-10 13:38 | MHC.CLN ---
NUTRITION DIET=CLEAR LIQUIDS DUE TO CROHN'S FLARE. WEIGHT LOSS TREND X 11 MONTHS, -10.3%. QUALIFIES MODERATELY MALNOURISHED IN THE CONTEXT OF CHRONIC ILLNESS. MILD DEPLETION OF BODY FAT AND MUSCLE MASS NOTED. BMI=16.9. WHEN ABLE TO ADVANCE DIET, RECOMMEND ENSURE TID. SUPPLEMENT PROVIDES 1050 KCALS, 60 G PROTEIN. FOLLOW FOR DIET ADVANCEMENT, DIET TOLERANCE AND PO INTAKE. SEE CLINICAL NUTRITION ASSESSMENT 04/10/24.
[2024-04-10 15:28] VITALS: BP 100/58; RESP 18; TEMP 36.6; O2SAT 100
[2024-04-10 17:00] LABS: CDiff Gene PCR NEGATIVE (Negative)
[2024-04-10] MEDS: 0.9 % Sodium Chloride Flush 3 ML SYRINGE IVFLUSH (17:15)
[2024-04-10 19:33] VITALS: BP 103/62; PULSE 68; RESP 18; TEMP 36.2; O2SAT 100
[2024-04-11] MEDS: Lactated Ringers 1,000 ML 150 ML IVCONT ×4 (00:01→23:51)
[2024-04-11] MEDS: metroNIDAZOLE/NS 500 MG/100 ML PIGGYBACK 100 MG IV ×4 (00:02→23:52)
[2024-04-11 03:44] VITALS: BP 107/60; PULSE 59; RESP 19; TEMP 35.6; O2SAT 96
[2024-04-11] MEDS: methylPREDNISolone Sod Succ 40 MG/ML VIAL 20 MG IVPUSH ×3 (04:16→20:11)
[2024-04-11 07:04] LABS: HBS Num1 0.13 mIU/mL (0-7.99); HBc Num1 0.12 S/CO (0.00-0.79); HBsAGNum1 0.29 S/CO (0.00-0.99); Hepatitis B Core Antibody Nonreactive (Nonreactive); Hepatitis B Surface Antigen Negative (Negative); ~HepC Num1 0.22 S/CO (0.00-0.79); ~Hepatitis B Surface Antibody NONREACTIVE (Nonreactive); ~Hepatitis C Antibody Nonreactive (Nonreactive)
[2024-04-11 07:49] VITALS: BP 101/57; PULSE 62; RESP 16; TEMP 36.4; O2SAT 100
--- NOTE | 2024-04-11 07:54 | P.PNGI_ITS ---
Subjective Subjective Date of Service: 04/11/24 Interval History: doning much better no abdo pain diarrhea much reduced minimal blood abdo less distended no fevers Critical Care Time (minutes): 0 Physical Exam 2 Vital Signs: Vital Signs: Last Vital Signs Temp 97.5 F 04/11/24 07:49 Pulse 62 04/11/24 07:49 Resp 16 04/11/24 07:49 BP 101/57 L 04/11/24 07:49 Pulse Ox 100 04/11/24 07:49 O2 Del Method Room Air 04/11/24 07:49 BMI result Body Mass Index 16.9 EXAM: GENERAL: The patient is thin VITAL SIGNS:see workflow HEENT: Nonicteric sclerae, PERRLA, EOMI. Oropharynx clear. Moist mucous membranes. Conjunctivae appear well perfused. No thyroid mass. CHEST: Chest wall is nontender. HEART: Regular rate and rhythm without murmurs. LUNGS: Clear to auscultation bilaterally. ABDOMEN: Soft, positive bowel sounds, nontender, no organomegaly.no flank tenderness SKIN: No rash, no excessive bruising, petechiae, or purpura. NEUROLOGIC: Cranial nerves II-XII intact without motor/sensory deficit. Psych: normal affect Objective Data Labs 04/10/24 04:24 04/10/24 04:24 Labs: Laboratory Results - last 24 hr 04/10/24 04/11/24 15:58 05:24 C. difficile Tox B Gene NEGATIVE Hep Bs Antigen Negative Hep Bs Antibody NONREACTIVE Hep B Core Total Ab Nonreactive Hepatitis C Ab (EIA) Nonreactive Microbiology Microbiology Results: Microbiology 04/09/24 18:11 Blood - Venous Blood Culture - Preliminary No growth after 24 hours. 04/09/24 17:54 Blood - Venous Blood Culture - Preliminary No growth after 24 hours. Procedures Date of Service Date of Service: 04/11/24 Progress Note: A&P Assessment and plan (1) Crohn's colitis: Status: Acute Plan 1/ Acute on chronic colitis, crohns, severe PLAN: 1/ transition to PO pred tomorrow 40 mg with long taper over 4 weeks, 2/ TB spot and hep serologies rodered, plan for o/p remicade 3/ send on 7 d of PO abx on d/c 4/ DVT prophylaxis with low dose lovenox Time Spent With Patient Time: Total time managing care of this patient today ____ minutes. Quality Stroke Does the patient have a stroke diagnosis?: No VTE Prior VTE?: No VTE Risk Level:: Medical - moderate - high VTE Device Contraindication: N/A - Device Ordered VTE Drug Contraindication: Treatment Not Indicated
[2024-04-11] MEDS: cefTRIAXone sodium 1 GM VIAL IVPUSH (09:25)
--- NOTE | 2024-04-11 09:26 | P.PNIM_ITS ---
Subjective Subjective Date of Service: 04/11/24 Interval History: f/u on chrohn's flare, no pain tolerating liquid diet Physical Exam 2 Vital Signs: Vital Signs: Last Vital Signs Temp 97.5 F 04/11/24 07:49 Pulse 62 04/11/24 07:49 Resp 16 04/11/24 07:49 BP 101/57 L 04/11/24 07:49 Pulse Ox 100 04/11/24 07:49 O2 Del Method Room Air 04/11/24 07:49 BMI result Body Mass Index 16.9 Const: Other: General: AO X 3, no acute distress Resp: CTA bilateral CVS: S1,S2,RRR GI: +BS, NT, no distention Skin: No rash Neuro: motor grossly intact Psych: appropriate affect Objective Data Active Medications Acetaminophen (Acetaminophen 325 Mg Tablet) 975 mg PO Q6H PRN PRN Reason: Pain, Mild (Pain Scale 1-3), fever or headache Ceftriaxone Sodium (Ceftriaxone Sodium 1 Gm Vial) 1 gm IVPUSH Q24H [facility] Last Admin: 04/10/24 09:41 Dose: 1 gm Documented By: DOUGIE Lactated Ringer's (Lr) 1,000 mls @ 150 mls/hr IVCONT .Q6H40M [facility] Last Infusion: 04/11/24 01:03 Dose: 150 mls/hr Documented By: RAVINDRA Metronidazole (Flagyl) 500 mg in 100 mls @ 100 mls/hr IV Q8H [facility] Last Infusion: 04/11/24 01:02 Dose: Infused Documented By: RAVINDRA Melatonin (Melatonin 3 Mg Tablet) 6 mg PO BEDTIME PRN PRN Reason: Insomnia Methylprednisolone Sodium Succinate (Methylprednisolone Sod Succ 40 Mg/Ml Vial) 20 mg IVPUSH Q8H [facility] Last Admin: 04/11/24 04:16 Dose: 20 mg Documented By: RAVINDRA Ondansetron HCl (Ondansetron Hcl 4 Mg/2 Ml Vial) 4 mg IVPUSH Q8H PRN PRN Reason: Nausea and Vomiting Sodium Chloride (0.9 % Sodium Chloride Flush 3 Ml Syringe) 3 ml IVFLUSH QSHIFT [facility] Last Admin: 04/11/24 00:34 Dose: Not Given Documented By: RAVINDRA Non-Admin Reason: IV Running Labs 04/10/24 04:24 04/10/24 04:24 Labs: Laboratory Results - last 24 hr 04/10/24 04/11/24 15:58 05:24 C. difficile Tox B Gene NEGATIVE Hep Bs Antigen Negative Hep Bs Antibody NONREACTIVE Hep B Core Total Ab Nonreactive Hepatitis C Ab (EIA) Nonreactive Microbiology Microbiology Results: Microbiology 04/09/24 18:11 Blood Culture - Preliminary Blood - Venous No growth after 24 hours. 04/09/24 17:54 Blood Culture - Preliminary Blood - Venous No growth after 24 hours. Assessment and Plan (1) Anemia: Status: Acute (2) Crohn's colitis: Status: Acute Plan 23/m with Acute Crohn's disease flare--pain is better -continue Abx (Ceftriaxone and Flagyl) for 7 days -IV steroid and change to PO tomorrow per gi recommendation -Tspot, hepatitis--in anticipation of biologics on outpatient Chronic anemia d/t above, stable. DVT prophylaxis: SCDs. Code status: Full. Quality Stroke Does the patient have a stroke diagnosis?: No VTE Prior VTE?: No VTE Risk Level:: Medical - moderate - high VTE Device Contraindication: N/A - Device Ordered VTE Drug Contraindication: Treatment Not Indicated
[2024-04-11 11:00] LABS: Adenovirus F 40/41 Not Detected (Not Detect.); Astrovirus Not Detected (Not Detect.); Campylobacter Not Detected (Not Detect.); Cryptosporidium Not Detected (Not Detect.); Cyclospora cayetanensis Not Detected (Not Detect.); E. coli EAEC Not Detected (Not Detect.); E. coli EPEC Not Detected (Not Detect.); E. coli ETEC Not Detected (Not Detect.); E. coli STEC Not Detected (Not Detect.); Entamoeba histolytica Not Detected (Not Detect.); Giardia lamblia Not Detected (Not Detect.); Norovirus GI/GII Not Detected (Not Detect.); Plesiomonas shigelloides Not Detected (Not Detect.); Rotavirus A Not Detected (Not Detect.); Salmonella Not Detected (Not Detect.); Sapovirus Not Detected (Not Detect.); Shigella sp./EIEC Not Detected (Not Detect.); Vibrio Not Detected (Not Detect.); Vibrio Cholerae Not Detected (Not Detect.); Yersinia enterocolitica Not Detected (Not Detect.)
--- NOTE | 2024-04-11 15:21 | PM.PNGS ---
Subjective Subjective Date of Service: 04/11/24 Interval history: States he feels better today Much less abdominal pain No nausea or vomiting Passing flatus Physical Exam Vital Signs: Vital Signs: Last Vital Signs Temp 97.5 F 04/11/24 07:49 Pulse 62 04/11/24 07:49 Resp 16 04/11/24 07:49 BP 101/57 L 04/11/24 07:49 Pulse Ox 100 04/11/24 07:49 O2 Del Method Room Air 04/11/24 07:49 BMI result Body Mass Index 16.9 Const: General: comfortable and no acute distress Resp: Effort & Inspection: normal respiratory effort GI: Palpation (GI): Soft to palpation, not firm, Tenderness to palpation present (GI) (Minimal tenderness diffusely) and no guarding Objective Data Active Medications Acetaminophen (Acetaminophen 325 Mg Tablet) 975 mg PO Q6H PRN PRN Reason: Pain, Mild (Pain Scale 1-3), fever or headache Ceftriaxone Sodium (Ceftriaxone Sodium 1 Gm Vial) 1 gm IVPUSH Q24H [facility] Last Admin: 04/11/24 09:25 Dose: 1 gm Documented By: DOUGIE Lactated Ringer's (Lr) 1,000 mls @ 150 mls/hr IVCONT .Q6H40M [facility] Last Admin: 04/11/24 09:25 Dose: 150 mls/hr Documented By: DOUGIE Metronidazole (Flagyl) 500 mg in 100 mls @ 100 mls/hr IV Q8H [facility] Last Infusion: 04/11/24 10:27 Dose: Infused Documented By: DOUGIE Melatonin (Melatonin 3 Mg Tablet) 6 mg PO BEDTIME PRN PRN Reason: Insomnia Methylprednisolone Sodium Succinate (Methylprednisolone Sod Succ 40 Mg/Ml Vial) 20 mg IVPUSH Q8H [facility] Last Admin: 04/11/24 12:13 Dose: 20 mg Documented By: DOUGIE Ondansetron HCl (Ondansetron Hcl 4 Mg/2 Ml Vial) 4 mg IVPUSH Q8H PRN PRN Reason: Nausea and Vomiting Sodium Chloride (0.9 % Sodium Chloride Flush 3 Ml Syringe) 3 ml IVFLUSH QSHIFT [facility] Last Admin: 04/11/24 09:26 Dose: Not Given Documented By: DOUGIE Non-Admin Reason: IV Running Labs 04/10/24 04:24 04/10/24 04:24 Labs: Laboratory Results - last 24 hr 04/10/24 04/11/24 15:58 05:24 Stl C. cayetanensis PCR Not Detected Stool Rotavirus A PCR Not Detected Stl Adenov F 40/41 PCR Not Detected Stool Astrovirus (PCR) Not Detected Stool Campylobacter PCR Not Detected Stool Cryptosporidium PCR Not Detected Stl Sh Tox Pr E STEC PCR Not Detected Stool E coli O157 PCR Not applicable Stl Enterotoxigenic E PCR Not Detected Stool EPEC (PCR) Not Detected Stool EAEC (PCR) Not Detected Stl E. histolytica PCR Not Detected Stool Giardia Lamblia PCR Not Detected Stl P. shigelloides PCR Not Detected Stool Salmonella PCR Not Detected Stool Sapovirus (PCR) Not Detected Stl Shigella/EIEC PCR Not Detected St Y.enterocolitica PCR Not Detected Stool Vibrio (PCR) Not Detected Stl Vibrio cholerae PCR Not Detected Stl Norovirus GI/GII PCR Not Detected C. difficile Tox B Gene NEGATIVE Hep Bs Antigen Negative Hep Bs Antibody NONREACTIVE Hep B Core Total Ab Nonreactive Hepatitis C Ab (EIA) Nonreactive Microbiology Microbiology Results: Microbiology 04/09/24 18:11 Blood Culture - Preliminary Blood - Venous No growth after 24 hours. 04/09/24 17:54 Blood Culture - Preliminary Blood - Venous No growth after 24 hours. Procedures Date of Service Date of Service: 04/11/24 Progress Note: A&P Assessment and plan (1) Crohn's colitis: Status: Acute Assessment and Plan: Abdomen remained soft and benign Tenderness and pain has improved significantly Clear liquids, advance as tolerated Control of Crohn's disease We will defer to GI for rest of management Time Spent With Patient Time: Total time managing care of this patient today ____ minutes. Quality Stroke Does the patient have a stroke diagnosis?: No VTE Prior VTE?: No VTE Risk Level:: Medical - moderate - high VTE Device Contraindication: N/A - Device Ordered VTE Drug Contraindication: Treatment Not Indicated
[2024-04-11 15:31] VITALS: BP 94/54; PULSE 70; RESP 16; TEMP 36.1; O2SAT 100
--- NOTE | 2024-04-11 16:05 | P.CDIM_ITS ---
PROVIDER RESPONSE TEXT: To clarify, the appropriate diagnosis supported by the clinical indicators: Moderate QUERY TEXT: PHYSICIAN'S DOCUMENTATION REQUEST Date of Query: 04/10/2024 11:47 AM EST Patient Name: Romaine Raymundo Admit Date: 04/10/2024 Dear Marcellus Pearson MD, A review of the medical record indicates additional documentation may be needed. Please review below and update the documentation accordingly. Documentation includes the diagnosis of malnutrition. H&P - Constitutional - awake and alert, no apparent distress, Malnourished. Nursing notes height and weight: Underweight with BMI 16.9 5ft 8in 50.5kg Albumin 2.7 If possible, please provide additional specificity regarding the severity of the malnutrition using t he above information: Mild Moderate Severe Underweight Other (explain) Clinically unable to determine (explain) Thank you, Carol Clements, CCS, CDIS Use of terms such as suspected, likely, concern for, or probable (associated with a specific diagnosi s that is being evaluated, monitored, or treated as if it exists) are acceptable and can be coded in the inpatient se tting, when documented at the time of discharge. Please use your independent medical judgment in providing your response. THIS QUERY IS PART OF THE PERMANENT MEDICAL RECORD
[2024-04-11 19:01] VITALS: BP 100/58; PULSE 75; RESP 16; TEMP 36.2; O2SAT 100
[2024-04-11] MEDS: 0.9 % Sodium Chloride Flush 3 ML SYRINGE IVFLUSH (20:12)
[2024-04-12] MEDS: methylPREDNISolone Sod Succ 40 MG/ML VIAL 20 MG IVPUSH (03:46)
[2024-04-12 04:00] VITALS: BP 100/54; PULSE 50; RESP 16; TEMP 36.6; O2SAT 100
[2024-04-12 07:57] VITALS: BP 109/66; PULSE 50; RESP 16; TEMP 36.1; O2SAT 100
--- NOTE | 2024-04-12 08:51 | P.PNGS_ITS ---
Subjective Subjective Date of Service: 04/12/24 Interval history: Feels well Denies abdominal pain currently No nausea or vomiting Has BMs, flatus Physical Exam 2 Vital Signs: Vital Signs: Last Vital Signs Temp 97.0 F 04/12/24 07:57 Pulse 50 04/12/24 07:57 Resp 16 04/12/24 07:57 BP 109/66 04/12/24 07:57 Pulse Ox 100 04/12/24 07:57 O2 Del Method Room Air 04/12/24 07:57 BMI result Body Mass Index 16.9 Const: General: comfortable and no acute distress Resp: Effort & Inspection: normal respiratory effort GI: Palpation (GI): Soft to palpation, not firm and nontender Objective Data Active Medications Acetaminophen (Acetaminophen 325 Mg Tablet) 975 mg PO Q6H PRN PRN Reason: Pain, Mild (Pain Scale 1-3), fever or headache Ceftriaxone Sodium (Ceftriaxone Sodium 1 Gm Vial) 1 gm IVPUSH Q24H [facility] Last Admin: 04/11/24 09:25 Dose: 1 gm Documented By: DOUGIE Metronidazole (Flagyl) 500 mg in 100 mls @ 100 mls/hr IV Q8H [facility] Last Infusion: 04/12/24 00:52 Dose: Infused Documented By: RAVINDRA Melatonin (Melatonin 3 Mg Tablet) 6 mg PO BEDTIME PRN PRN Reason: Insomnia Ondansetron HCl (Ondansetron Hcl 4 Mg/2 Ml Vial) 4 mg IVPUSH Q8H PRN PRN Reason: Nausea and Vomiting Prednisone (Prednisone 20 Mg Tablet) 40 mg PO DAILY [facility] Sodium Chloride (0.9 % Sodium Chloride Flush 3 Ml Syringe) 3 ml IVFLUSH QSHIFT [facility] Last Admin: 04/11/24 20:12 Dose: 3 ml Documented By: RAVINDRA Labs 04/10/24 04:24 04/10/24 04:24 Labs: Laboratory Results - last 24 hr 04/10/24 15:58 Stl C. cayetanensis PCR Not Detected Stool Rotavirus A PCR Not Detected Stl Adenov F 40/41 PCR Not Detected Stool Astrovirus (PCR) Not Detected Stool Campylobacter PCR Not Detected Stool Cryptosporidium PCR Not Detected Stl Sh Tox Pr E STEC PCR Not Detected Stool E coli O157 PCR Not applicable Stl Enterotoxigenic E PCR Not Detected Stool EPEC (PCR) Not Detected Stool EAEC (PCR) Not Detected Stl E. histolytica PCR Not Detected Stool Giardia Lamblia PCR Not Detected Stl P. shigelloides PCR Not Detected Stool Salmonella PCR Not Detected Stool Sapovirus (PCR) Not Detected Stl Shigella/EIEC PCR Not Detected St Y.enterocolitica PCR Not Detected Stool Vibrio (PCR) Not Detected Stl Vibrio cholerae PCR Not Detected Stl Norovirus GI/GII PCR Not Detected Microbiology Microbiology Results: Microbiology 04/09/24 18:11 Blood Culture - Preliminary Blood - Venous No growth after 48 hours. 04/09/24 17:54 Blood Culture - Preliminary Blood - Venous No growth after 48 hours. Procedures Date of Service Date of Service: 04/12/24 Progress Note: A&P Assessment and plan (1) Crohn's colitis: Status: Acute Assessment and Plan: Symptoms much improved Appears to have good GI function Exam very benign Diet as tolerated Further treatment as per GI recommendations Time Spent With Patient Time: Total time managing care of this patient today ____ minutes. Quality Stroke Does the patient have a stroke diagnosis?: No VTE Prior VTE?: No VTE Risk Level:: Medical - moderate - high VTE Device Contraindication: N/A - Device Ordered VTE Drug Contraindication: Treatment Not Indicated
[2024-04-12] MEDS: 0.9 % Sodium Chloride Flush 3 ML SYRINGE IVFLUSH (09:04)
[2024-04-12] MEDS: cefTRIAXone sodium 1 GM VIAL IVPUSH (09:07)
[2024-04-12] MEDS: predniSONE 20 MG TABLET 40 MG PO (09:07)
--- NOTE | 2024-04-12 09:09 | MHC.CLN ---
F/U DIET ADVANCED TODAY TO REGULAR. ADDING ENSURE TID TO PROVIDE 1050 KCALS, 60 G PROTEIN. FOLLOW FOR DIET TOLERANCE.
--- NOTE | 2024-04-12 09:29 | PM.DS ---
DS: Providers Provider Date of Service: 04/12/24 Date of admission: 04/10/24 01:45 Primary care physician: None Physician Consults: 04/10/24 01:55 Consult to Gastroenterology Routine Consulting Provider: Donna Shrestha Reason for consultation: Crohn's flare Has provider been notified: Yes 04/11/24 12:32 Consult to General Surgery Routine Consulting Provider: [facility] General Surgeons Reason for consultation: crohn's colitis Has provider been notified: Yes DS: Diagnosis Discharge Diagnosis (1) Crohn's colitis: Status: Acute DS: Summary Hospital Course Hospital Course: admission hpi Chief Complaint: Diarrhea, abdominal pain Romaine Ahmadi is a 23 years old man with past medical history significant for Crohn's disease presents to the emergency department complaining of worsening right-sided abdominal pain associated with distention over the last several days associated with intermittent bloody watery. The pain is colicky in nature, intensity 9/10 and has not radiations. Diarrhea denies fever, chills, nausea or vomiting. Denied any acute urinary symptoms. Denied any acute cardiopulmonary symptoms. Denied alcohol abuse, marijuana use or tobacco smoking. He is not taking any medication for Crohn's. In the ED, he was found to have stable vital signs. Blood workup showed no leukocytosis. CRP is 9.31. Hemoglobin is 8.3 (9.06 December 2023). Platelets are normal. There are no electrolyte imbalances. Renal function and LFTs are normal. There is no lactic acidosis. Abdomen pelvis CT scan showed finding consistent with active inflammatory bowel disease, hepatomegaly and mild portal edema. ED tx: Metronidazole 500 mg IV, Solu-Medrol 125 mg IV, NS 3.5 L bolus, ceftriaxone 2 g, ketorolac 15 mg IV, morphine 4 mg IV Hospital course: The patient presented with abdominal pain, and a CT scan revealed active inflammatory bowel disease. He was treated with IV antibiotics (Ceftriaxone and Flagyl) and IV steroids. Surgical consultation was obtained, but no intervention was required. The Gastroenterology team recommends transitioning to oral Prednisone 40 mg with a slow taper and a 7-day course of oral antibiotics. A TB T-Spot test was performed in preparation for initiating Remicade on an outpatient basis. The patient is tolerating a regular diet. Time Attestation Discharge Coordination Time (in mins): 40 Quality: Safe Use of Opioids Does Pt have an Active Cancer Diagnosis on the Problem List?: No Quality: Stroke Does the patient have a stroke diagnosis?: No Physical Exam Vital Signs: Vital Signs: Last Vital Signs Temp 97.0 F 04/12/24 07:57 Pulse 50 04/12/24 07:57 Resp 16 04/12/24 07:57 BP 109/66 04/12/24 07:57 Pulse Ox 100 04/12/24 07:57 O2 Del Method Room Air 04/12/24 07:57 BMI result Body Mass Index 16.9 Const: Other: General: AO X 3, no acute distress Resp: CTA bilateral CVS: S1,S2,RRR GI: +BS, NT, no distention Skin: No rash Neuro: motor grossly intact Psych: appropriate affect DS: Data Data Completed and Pending Labs on day of discharge: Laboratory Results - last 24 hr 04/10/24 15:58 Stl C. cayetanensis PCR Not Detected Stool Rotavirus A PCR Not Detected Stl Adenov F 40/41 PCR Not Detected Stool Astrovirus (PCR) Not Detected Stool Campylobacter PCR Not Detected Stool Cryptosporidium PCR Not Detected Stl Sh Tox Pr E STEC PCR Not Detected Stool E coli O157 PCR Not applicable Stl Enterotoxigenic E PCR Not Detected Stool EPEC (PCR) Not Detected Stool EAEC (PCR) Not Detected Stl E. histolytica PCR Not Detected Stool Giardia Lamblia PCR Not Detected Stl P. shigelloides PCR Not Detected Stool Salmonella PCR Not Detected Stool Sapovirus (PCR) Not Detected Stl Shigella/EIEC PCR Not Detected St Y.enterocolitica PCR Not Detected Stool Vibrio (PCR) Not Detected Stl Vibrio cholerae PCR Not Detected Stl Norovirus GI/GII PCR Not Detected Preliminary micro results at discharge 04/09/24 18:11 Blood Culture - Preliminary Blood - Venous No growth after 48 hours. 04/09/24 17:54 Blood Culture - Preliminary Blood - Venous No growth after 48 hours. Discharge Plan Discharge Anticipated Discharge Date/Time: 04/12/24 09:40 Patient Disposition: Home, Self-Care Discharge Diagnosis: Acute crohn's flare and colitis Referrals: Donna Shrestha MD [Physician] - 2 Weeks Physician,None [Primary Care Provider] - 1 Week Discharge Medications: New cefuroxime axetil 500 mg tablet 500 mg PO BID 7 Days Qty: 14 0RF metronidazole 500 mg Tablet 500 mg PO TID Qty: 21 0RF prednisone 5 mg tablet See Rx Instructions .ROUTE .COMPLEX Qty: 252 0RF Rx Instructions: start taking 8 tablets daily, and reduce by 1 tablet every 7 days until completion Discharge Orders: Discharge Order (Routine); Ordered 04/12/24 Ordered By: Marcellus Pearson Diet: Advance to usual diet Activity on Discharge: As tolerated Stand Alone Forms: Patient Portal Discharge page Print Language: Citizen Of [place] Care Plan Goals: recovery from Health Concerns: recovery from Acute on chronic colitis, crohn's flare Plan of Treatment: Take Cefuroxime and flagyl as directed follow up with Dr. Shrestha Take Prednisone as directed, start with 8 tablets daily for7 days, then reduce by 1 tablet every 7 days see table Week Tablets/Day Total Tablets/Week 1 8 for 7 days 2 7 for 7 days 3 6 for 7 days 4 5 for 7 days 5 4 for 7 days 6 3 for 7 days 7 2 for 7 days 8 1 for 7 days Assessment: see above
[2024-04-12] MEDS: metroNIDAZOLE 500 MG TABLET PO (09:45)
--- NOTE | 2024-04-12 09:55 | MHC.CM.PN ---
Addendum entered by Celena Stout 04/12/24 15:07: Patient tolerated diet. He was discharged to home self care. He arranged for transportation home. Original Note: Patient's diet has been advanced to regular today. Discharge is anticipated today once the diet is tolerated. DP Home self care. Patient will arrange for transportation home.
[2024-04-12 11:26] VITALS: BP 99/59; PULSE 58; RESP 16; TEMP 36.2; O2SAT 100
[2024-04-13 22:38] LABS: TS Negative Control Passed; TS Panel A 0; TS Panel B 0; TS Positive Control Passed; TSpotTB Negative (Negative)
== END 2024-04-12 14:44 | disposition home or self-care (01) | DRG 245 ==
LOC: HO.ED 22:51 → HO.EDOVER 04-10 01:50 → HO.S3 04-10 07:23
PROVIDERS: Internal Medicine Gastroenterology; Physician Assistant Medical; Registered Nurse Emergency; Admitting Provider Internal Medicine; Emergency Provider Emergency Medicine; Visit Provider Internal Medicine
DX: K50.111 Crohn's disease of large intestine with rectal bleeding (principal); E44.0 Moderate protein-calorie malnutrition; D63.8 Anemia in other chronic diseases classified elsewhere; Z68.1 Body mass index [BMI] 19.9 or less, adult
CPT/HCPCS: 0241U; 36415; 74018; 74177; 80048; 80053; 81003; 83605; 83735; 85025; 85652; 86140; 86481; 86704; 86706; 86803; 86850; 86900; 86901; 87040; 87340; 87493; 87507; 99285; J0696; J1836; J1885; J2270; J2919; J7120; Q9967

== ENCOUNTER → 2024-04-10 01:45 | Outpatient (BNV) | payer OTHER, SELFPAY | PROVIDERS: Admitting Provider Internal Medicine; Emergency Provider Emergency Medicine; Visit Provider Internal Medicine | DX: K50.10 Crohn's disease of large intestine without complications (principal); D64.9 Anemia, unspecified | CPT/HCPCS: 99223; 99232; 99499 ==

== ENCOUNTER → 2024-04-10 01:45 | Outpatient (BNV) | payer OTHER, SELFPAY | PROVIDERS: Admitting Provider Internal Medicine; Emergency Provider Emergency Medicine; Visit Provider Physician Assistant Surgical | DX: K50.111 Crohn's disease of large intestine with rectal bleeding (principal) | CPT/HCPCS: 99222; 99231; 99232 ==

== ENCOUNTER → 2024-04-10 01:45 | Outpatient (BNV) | payer OTHER, SELFPAY | PROVIDERS: Admitting Provider Internal Medicine; Emergency Provider Emergency Medicine; Visit Provider Internal Medicine Gastroenterology | DX: K50.111 Crohn's disease of large intestine with rectal bleeding (principal) | CPT/HCPCS: 99223; 99232 ==

== ENCOUNTER → 2024-07-11 07:47 | Outpatient (BNVA) | payer OTHER, SELFPAY | DX: D64.9 Anemia, unspecified (principal); K50.111 Crohn's disease of large intestine with rectal bleeding; F41.9 Anxiety disorder, unspecified; F32.A Depression, unspecified; H54.7 Unspecified visual loss; R07.9 Chest pain, unspecified; R06.02 Shortness of breath | CPT/HCPCS: 96127 ==

== ENCOUNTER 2024-07-17 08:47 | Outpatient (REF) | payer OTHER, SELFPAY ==
--- NOTE | 2024-07-17 08:52 | PFT_ITS ---
Indication: Dyspnea Spirometry [FEV1 to FVC 88%; FEV1 4.19 L; FVC 4.78 L. no significant response to bronchodilators noted.] Lung Volumes [Total lung capacity 90% predicted] Diffusion Capacity [DLCO 64% predicted] Comparisons [none] Interpretation [No obstructive nor restrictive ventilatory defects identified. No significant response to bronchodilators noted. Lung volumes are within normal limits. The patient however does have an isolated mild diffusion impairment. Need to consider correcting for hemoglobin in addition to pulmonary vascular conditions. If asthma is in differential methacholine challenge may be helpful assessing for hyperactive airways.] MTDD
== END 2024-07-17 08:48 | disposition home or self-care (01) ==
LOC: HO.RESP 08:47
DX: R06.02 Shortness of breath (principal)
CPT/HCPCS: 94010; 94640; 94727; 94729

== ENCOUNTER → 2024-07-17 08:52 | Outpatient (BNV) | payer OTHER, SELFPAY | PROVIDERS: Visit Provider Hospitalist | DX: R06.02 Shortness of breath (principal) | CPT/HCPCS: 94060; 94727; 94729 ==

== ENCOUNTER → 2024-07-23 07:42 | Outpatient (REF) | payer OTHER, SELFPAY ==
--- NOTE | 2024-07-23 07:45 | CA_ITS ---
Acquisition Time: 2024-07-23 08:07:43 Total Exercise Time: 00:07:56 Test Indications: Dyspnea,CP Medications: REMICADE Protocol: ASHLEY Max HR: 173 BPM 88% of Pred: 195 BPM Max BP: 120/60 mmHG Max Work Load: 9.9 METS Exercise Stress Test with exercise 7 mins 56 secs of Ashley Protocol, achieving 88% MPHR, with reports of 5/10 chest tightness that resolved quickly in recovery, without any arrythmias, with normotensive response to exercise. Without EKG changes meeting criteria for ischemia. Recommend stress echo to further evaluate the CP if needed. Test reviewed with Dr. Mullins. Referred By: Ivette Guerrero Electronically Signed By: Dean Burgess
== END ==
LOC: HO.CARD 07:42
DX: R07.9 Chest pain, unspecified (principal)
CPT/HCPCS: 93017

== ENCOUNTER → 2024-07-23 07:45 | Outpatient (BNV) | payer OTHER, SELFPAY | DX: R07.9 Chest pain, unspecified (principal) | CPT/HCPCS: 93016; 93018 ==

== ENCOUNTER → 2024-08-26 10:56 | Outpatient (REF) | payer OTHER, SELFPAY ==
--- NOTE | 2024-08-26 11:00 | CA_ITS ---
Acquisition Time: 2024-08-26 11:14:15 Total Exercise Time: 00:07:30 Test Indications: CHEST PAIN Medications: Protocol: ASHLEY Max HR: 181 BPM 92% of Pred: 195 BPM Max BP: 108/60 mmHG Max Work Load: 9.3 METS Exercise stress test with exercise 7 mins 30 secs of Ashley Protocol, achieving 92% MPHR, with reports of mild SOB, no chest pain, without any arrythmias, with nomortensive response to exercise. Without EKG changes meeting criteria for ischemia. In recovery, breathing returned to baseline. Echo images obtained by tech at rest and post peak exercise. Definity contrast utilized. Test reviewed with Dr. Josue. Referred By: Ivette Guerrero Electronically Signed By: Dean Burgess
== END ==
LOC: HO.CARD 10:56
DX: R07.9 Chest pain, unspecified (principal)
CPT/HCPCS: 93350; Q9957

== ENCOUNTER → 2024-08-26 11:00 | Outpatient (BNV) | payer OTHER, SELFPAY | DX: R06.02 Shortness of breath (principal) | CPT/HCPCS: 93016; 93018; 93350; 93352 ==

== ENCOUNTER 2024-10-07 09:56 | Outpatient (AMB) | payer OTHER, SELFPAY ==
--- NOTE | 2024-10-07 09:58 | A.OFFVIS_ITS ---
Vital Signs 10/07/24 10:00 Height 5 ft 8 in Weight 125 lb 10.616 oz BMI 19.1 BP 117/63 Blood Pressure Location Lt brachial Position Sitting Pulse 81 Intake Visit Reasons: Crohn's Intake Note: Romaine presets in the office as a follow up for Crohns. CC: States that this is just a routine follow up - no concerns. Lead Recreation Assistant Required: No Allergies No Known Allergies Allergy (Verified 07/11/24 08:22) HPI HPI Crohn's: Details: 23 years old man with past medical history significant for Crohn's disease who I am seeing for f/u RECAP: Per review of [facility] EMR he was diagnosed with crohns 2020 with colonoscopy revealing granulomas and metapalsia in the colon. He was commenced on humira which seemed to work well at the start but may have stopped working after a while. He lost insurance and stopped getting the medication He was admitted with flare of IBDS 2023 and commenced on remicade thereafter. Imaging: Abdomen pelvis CT scan showed finding consistent with active inflammatory bowel disease, hepatomegaly and mild portal edema. cecum is distended INTERIM: He has been doing pretty well with remicade slowly improving stools generally formed, no blood goes twice a day no nausea or vomiting EXAM: GENERAL: The patient is well developed and nontoxic. VITAL SIGNS:see workflow HEENT: Nonicteric sclerae, PERRLA, EOMI. Oropharynx clear. Moist mucous membranes. Conjunctivae appear well perfused. No thyroid mass. CHEST: Chest wall is nontender. HEART: Regular rate and rhythm without murmurs. LUNGS: Clear to auscultation bilaterally. ABDOMEN: Soft, positive bowel sounds, nontender, no organomegaly.no flank tenderness SKIN: No rash, no excessive bruising, petechiae, or purpura. NEUROLOGIC: Cranial nerves II-XII intact without motor/sensory deficit. Psych: normal affect A/P: 1/ Crohns colitis, better with remicade dx 2018 PLAN: 1/ recheck labs today 2/ cont with remicade 3/ colonoscopy future date 4/ non smoker,, no drugs or nsaid use [facility] Medical History Acute Crohn's disease Family History Maternal Grandfather Cancer Social History Household Members: Family Housing: House Do you presently have visiting nurse or other home services: No Alcohol intake: never Patient Tobacco Use Status: Never used Tobacco e-Cigarette/Vaping Use: Never Used Second Hand Smoke Exposure: No service: No Current occupational status: unemployed Cognitive needs: No Hearing needs: No Vision needs: No Physical Exam Vital Signs: Last Vital Signs Pulse 81 10/07/24 10:00 BP 117/63 10/07/24 10:00 BMI result Body Mass Index 19.1 Assessment & Plan Assessment & Plan (1) Crohn's colitis: Code(s): K50.10 - Crohn's disease of large intestine without complications Category: Medical Qualifiers: Digestive disease complication type: with rectal bleeding Qualified Code(s): K50.111 - Crohn's disease of large intestine with rectal bleeding Plan: as above Orders: Orders C Reactive Protein Today K50.111 - Crohn's disease of large intestine with rectal bleeding Complete Blood Count Auto Diff Today K50.111 - Crohn's disease of large intestine with rectal bleeding Lactoferrin, Fecal, Quant. Today K50.111 - Crohn's disease of large intestine with rectal bleeding, K51.50 - Left sided colitis without complications Comprehensive Met. Panel Today K50.111 - Crohn's disease of large intestine with rectal bleeding, K75.81 - Nonalcoholic steatohepatitis (CURRIE) Coding Level of Care Code Est Pt Level 3 (80926) Diagnoses Crohn's disease of colon with rectal bleeding K50.111 Digestive disease complication type: with rectal bleeding
[2024-10-07 10:00] VITALS: BP 117/63; PULSE 81; BMI 19.1
== END 2024-10-07 10:26 | disposition home or self-care (01) ==
LOC: HO.HGI 09:57
PROVIDERS: Visit Provider Internal Medicine Gastroenterology
DX: K50.111 Crohn's disease of large intestine with rectal bleeding (principal)
CPT/HCPCS: 99213

== ENCOUNTER 2024-10-07 09:56 | Outpatient (REF) | payer OTHER, SELFPAY ==
[2024-10-07 10:53] LABS: MANUAL DIFF FLAG NO
[2024-10-07 11:28] LABS: Basophils Percent Auto 0.6 % (0-2); Eosinophils Absolute Auto 0.1 X10*3/uL (0.0-0.4); Eosinophils Percent Auto 1.8 % (0-4); Hematocrit 27.3 % (42.0-52.0); Hemoglobin 7.3 g/dl (14.0-18.0); Imm Gran Abs Auto 0.02 X10*3/uL (0.00-0.03); Imm Gran Pct Auto 0.4 % (0.0-0.4); Lymphocytes Absolute Auto 0.8 X10*3/uL (1.2-4.9); Lymphocytes Percent Auto 16.8 % (20-40); Mean Corpuscular HGB Conc 26.7 g/dl (31.0-36.0); Mean Corpuscular Hemoglobin 16.9 pg (27.0-33.0); Mean Platelet Volume 9.2 fL (9.4-12.4); Monocytes Absolute Auto 0.5 X10*3/uL (0.1-1.2); Monocytes Percent Auto 9.2 % (2-11); Neutrophils Absolute Auto 3.5 x10*3/uL (2.0-8.3); Neutrophils Percent Auto 71.2 % (45-73); Platelet Count 476 X10*3/uL (160-400); Red Blood Count 4.33 X10*6/uL (4.60-5.80); Red Cell Distribution Width 19.9 % (11.0-16.0); White Blood Count 4.9 X10*3/uL (4.8-10.8)
[2024-10-07 12:07] LABS: Alanine Aminotransferase 8 U/L (0-40); Albumin Level 3.5 g/dL (3.5-5.0); Alkaline Phosphatase 103 U/L (39-117); Anion Gap 9 (12-20); Aspartate Amino Transferase 18 U/L (5-37); Bilirubin Total 0.3 mg/dL (0.0-1.0); Blood Urea Nitrogen 13 mg/dL (9-16); C Reactive Protein 0.59 mg/dL (< or = 0.50); Calcium 8.8 mg/dL (8.4-10.2); Carbon Dioxide 29 mmol/L (22-29); Chloride 107 mmol/L (96-108); Estimated Glomerular Filt Rate > 60; Glucose Random 93 mg/dL (60-115); Iron 7 mcg/dL (45-160); Percent Iron Saturation 2 % (15-50); Potassium 3.8 mmol/L (3.3-5.1); Sodium 141 mmol/L (135-145); Total Iron Binding Capacity 309 mcg/dL (228-428); Unsaturated Iron Binding 302 ug/dL
[2024-10-07 12:17] LABS: Vitamin D 25-OH Total 10.7 ng/mL (>30)
== END 2024-10-07 09:57 | disposition home or self-care (01) ==
LOC: HO.LAB 09:56
PROVIDERS: Visit Provider Internal Medicine Gastroenterology
DX: Z00.00 Encounter for general adult medical examination without abnormal findings (principal); K50.111 Crohn's disease of large intestine with rectal bleeding; K75.81 Nonalcoholic steatohepatitis (NASH); D64.9 Anemia, unspecified
CPT/HCPCS: 36415; 80053; 82306; 83540; 85025; 86140

== ENCOUNTER 2024-10-08 07:45 | Outpatient (AMB) | payer OTHER, SELFPAY ==
--- NOTE | 2024-10-08 07:53 | A.OFFPC_ITS ---
Vital Signs 10/08/24 07:54 Height 5 ft 8 in Weight 131 lb BMI 19.9 BP 120/64 Blood Pressure Location Lt brachial Position Sitting Pulse 95 Pulse Source Pulse Oximeter Pulse Oximetry (%) 98 Oxygen Delivery Method Room Air Intake Visit Reasons: Annual Exam f/u stress test/ Senior Research Executive Required: No Accompanied by: Self / Same As Patient Allergies No Known Allergies Allergy (Verified 10/08/24 08:05) Medication List - Last Reconciled 10/08/24 by Ivette Guerrero PA-C infliximab (Remicade) IV sumatriptan succinate take 1 tab at onset of headache; if no relief may repeat 1 tab after at least 2 hrs; max = 2 tabs/24 hr PO Tobacco use date assessed: 07/11/24 Dental Screening Dental Screen Date: 07/11/24 HPI Annual Exam f/u stress test/ HPI Details 23-year-old male with past medical histo ry of depression, anxiety, anemia and Crohn's colitis last seen 07/2024 coming in for annual exam.?In review of the notes, patient was seen by GI 10/07/2024 plan to recheck labs continue with Remicade and follow up in 6 months. Patient completed ca rdiopulmonary stress test 08/2024 stress echo negative for ischemia no EKG changes meeting criteria for ischemia.?Patient completed pulmonary function test 07/2024 which was normal. He does continue to follow with the infusion center for anemia as well. Presenting for an annual wellness examination, addressing concerns of anemia and associated symptoms. Anemia is evolved with a hemoglobin level of 7.3, suggesting ongoing drop he does have shortness of breath that has not worsened or improved. Crohn's Disease is present but without current gastrointestinal bleeding. Past evaluations for chest pain, including stress test and echocardiogram, were unremarkable for cardiac causes. Pulmonary function tests yielded normal results. Insomnia noted is linked to approximately 4-5 hours of sleep, impacted by abdominal gases. [facility] Medical History Acute Crohn's disease Surgical History No pertinent past surgical history Family History Maternal Grandfather Cancer Social History Household Members: Family Housing: House Do you presently have visiting nurse or other home services: No Alcohol intake: never Patient Tobacco Use Status: Never used Tobacco e-Cigarette/Vaping Use: Never Used Second Hand Smoke Exposure: No service: No Current occupational status: unemployed Cognitive needs: No Hearing needs: No Vision needs: No Questionnaire Thrive Questionnaire Date Thrive assessed: 07/10/24 I am a: Patient What is your living situation today?: I have a steady place to live Within the past 12 months, did the food you bought not last and you didn't have the money to get more?: Sometimes True Within the past 12 months, did you worry whether your food would run out before you got money to buy more?: Sometimes True Do you have trouble paying for medicines?: No Do you have trouble getting transportation to medical appointments?: No Do you have trouble paying your heating and electricity bill?: No Do you have trouble taking care of your child, family member or friend?: I choose not to answer this question Do you have trouble with day-to-day activities such as bathing, preparing meals, shopping, managing finances, etc.?: Yes Are you currently unemployed and looking for a job?: No Are you interested in more education?: I choose not to answer this question Please select the resources that you would like help with: None Currently or been in a relationship where the following occur: Controlled Emotionally THRIVE Score: 3 ROLAND-7 AMB Questionnaire ROLAND-7 Date ROLAND - 7 assessed: 07/11/24 Source: Developed by Drs. Julio Rowell, Maria De Jesus De Leon, Ibrahima Valadez and colleagues, with an educational juan c from [employer]. Review of Systems Const Denies body aches, Denies chills, Denies fever(s), Denies headache(s) and Denies poor appetite Eyes Reports no additional complaints and Reports requires corrective lenses ENT Denies dysphagia, Denies dizziness, Denies headache(s) and Denies odynophagia Card Denies chest pain, Denies syncope, Denies edema, Denies irregular heart rhythm, Denies lightheadedness and Denies dyspnea Resp Denies cough and Denies dyspnea GI Details: N/V with Crohn flares Denies abdominal pain, Denies constipation, Denies dysphagia, Denies diarrhea, Denies nausea, Denies odynophagia and Denies vomiting Denies hematuria, Denies urinary frequency and Denies urinary hesitancy Musc Reports no additional complaints and Denies abnormal gait Skin/Breast Reports system reviewed and no additional complaints, except as documented Neuro Denies abnormal gait, Denies dizziness, Denies syncope and Denies headache(s) Psych Reports no additional complaints Physical exam (Primary Care) Vital Signs: Last Vital Signs Pulse 95 10/08/24 07:54 BP 120/64 10/08/24 07:54 Pulse Ox 98 10/08/24 07:54 Oxygen Delivery Method Room Air 10/08/24 07:54 BMI result Body Mass Index 19.9 Tobacco/Smoking Status: Tobacco use Status Tobacco use date assessed 07/11/24 10/08/24 07:58 Patient Tobacco Use Status Never used Tobacco 10/08/24 07:58 e-Cigarette/Vaping Use Never Used 10/08/24 07:58 Thrive Assessment: Date of Thrive Assessment Date Thrive assessed 07/10/24 10/08/24 07:58 Currently or been in a relationship where the following occur: Controlled Emotionally Const General: cooperative, healthy appearing, comfortable and no acute distress Orientation/consciousness: patient oriented x3 HENMT Head: Yes normocephalic Ears: hearing grossly normal bilaterally General nose exam: Normal external nose present Eyes General: appearance normal, both eyes and all related structures Conjunctivae: conjunctivae normal Neck Neck: Yes full ROM and Yes no lymphadenopathy Resp Effort & Inspection: normal respiratory effort Auscultation: clear to auscultation bilaterally, no crackles, no rales, no rhonchi and no wheezes Cardio Rate: regular rate Rhythm: regular rhythm Skin General skin exam: no rashes or lesions noted Neuro General: patient oriented x3 Gait exam (Neuro): Normal gait present Extrem General: Yes normal to inspection, Yes full ROM and No edema Psych Affect: normal affect Attitude: cooperative Insight: Good insight present (Psych) Judgement: Good judgement present (Psych) Coding Level of Care Code Est Pt Prev Care 18-39y(39882) Diagnoses Annual physical exam Z00.00 Recurrent major depressive disorder, remission status unspecified F33.9 Depression Type: major depressive disorder Major depression recurrence: recurrent Active/Remission status: remission status unspecified Anxiety F41.9 Crohn's disease of colon with rectal bleeding K50.111 Digestive disease complication type: with rectal bleeding Chest pain on exertion R07.9 Shortness of breath R06.02 Iron deficiency anemia D50.9 Assessment & Plan Assessment & Plan (1) Annual physical exam: Code(s): Z00.00 - Encounter for general adult medical examination without abnormal findings Category: Medical Plan: Patient is up-to-date on all recommended routine screenings for his age. Blood work is up-to-date and has been reviewed with the patient today. He is due for a tetanus vaccine plan to have patient obtain however patient left without vaccination. We will discuss at next visit and administer at that time. Plan to follow up again in 3 months for anemia and then yearly to follow. (2) Depression: Code(s): F32.A - Depression, unspecified Category: Medical Qualifiers: Depression Type: major depressive disorder Major depression recurrence: recurrent Active/Remission status: remission status unspecified Qualified Code(s): F33.9 - Major depressive disorder, recurrent, unspecified Plan: Patient has a history of depression states that he typically struggles with depression and anxiety but declines medication at this time. He does have a history of self-harm but denies any thoughts at this time and feels comfortable reach out if this were to change. Referral placed to counseling (3) Anxiety: Code(s): F41.9 - Anxiety disorder, unspecified Category: Medical Plan: Patient has a history of anxiety and declining medication at this time but is open to counseling referral. Denies any thoughts of self-harm referral placed to counseling (4) Crohn's colitis: Code(s): K50.10 - Crohn's disease of large intestine without complications Category: Medical Qualifiers: Digestive disease complication type: with rectal bleeding Qualified Code(s): K50.111 - Crohn's disease of large intestine with rectal bleeding Plan: Currently following with Gastroenterology and receiving IV infusion of Remicade. Last infusion when well had no side effects. (5) Chest pain on exertion: Code(s): R07.9 - Chest pain, unspecified Category: Medical Plan: Cardiology workup was normal he also admits chest pain has resolved at this time. He will continue to monitor his symptoms and reach out to the office if chest pain starts again. (6) Shortness of breath: Code(s): R06.02 - Shortness of breath Category: Medical Plan: PFT was normal, pulmonology suggested his shortness of breath was likely due to his low hemoglobin. Advised patient to continue to monitor his symptoms at time. Hemoglobin is low and referral was placed to Hematology today. (7) Iron deficiency anemia: Code(s): D50.9 - Iron deficiency anemia, unspecified Category: Medical Plan: Patient having iron-deficiency anemia hemoglobin of 7.3 and iron level of 7. Likely secondary to his colitis. Referral was placed to Hematology/Oncology today for further workup and evaluation. Plan to initiate on oral supplementation as well. Patient is asymptomatic at this time Plan The management of anemia includes referral to hematology for potential IV iron infusions due to suboptimal oral iron efficacy. Iron supplementation is advised, with counseling on possible constipation. Ongoing Crohn's Disease management with Remicade is satisfactory; follow-up with Gastroenterology is planned accordingly. Insomnia relief through simethicone for evening discomfort due to gas accumulation is prescription-based. Treatment for Vitamin D deficiency is commenced, pairing hydration advice to mitigate constipation effects from iron. Laboratory follow-ups, particularly hemoglobin levels, are scheduled. Mental health counseling is emphasized, expediting current referrals. This note was constructed using voice recognition software. While every effort has been made to ensure accuracy and transfer and pumphouse operator, still areas may have been included sometimes these areas may affect the content or meeting of the given symptoms. Total time spent caring for the patient today was 30 minutes. This includes time spent before the visit reviewing the chart, time spent during the visit, and time spent after the visit and documentation. Patient was informed and verbally consented to the use of an ambient scribe for clinic note documentation during this visit. Orders: Orders Complete Blood Count Auto Diff 3 Months D50.9 - Iron deficiency anemia, unspecified, E61.1 - Iron deficiency IRON PROFILE 3 Months D50.9 - Iron deficiency anemia, unspecified, E61.1 - Iron deficiency Referrals Hematology & Oncology Referral D50.9 - Iron deficiency anemia, unspecified, E61.1 - Iron deficiency Medications: New cholecalciferol (vitamin D3) 25 mcg PO DAILY 90 caps 3RF Gas-X Extra Strength (simethicone) 125 mg PO TID PRN 30 tabs 0RF abdominal distention NS ferrous sulfate 324 mg PO DAILY 60 tabs 0RF
[2024-10-08 07:54] VITALS: BP 120/64; PULSE 95; O2SAT 98; BMI 19.9
== END 2024-10-08 08:28 | disposition home or self-care (01) ==
LOC: HO.HMCH 07:46
DX: Z00.00 Encounter for general adult medical examination without abnormal findings (principal); F33.9 Major depressive disorder, recurrent, unspecified; F41.9 Anxiety disorder, unspecified; K50.111 Crohn's disease of large intestine with rectal bleeding; R07.9 Chest pain, unspecified; R06.02 Shortness of breath; D50.9 Iron deficiency anemia, unspecified

== ENCOUNTER → 2024-10-10 16:00 | Outpatient (BNV) | payer OTHER, SELFPAY | PROVIDERS: Visit Provider Internal Medicine Medical Oncology | DX: D50.9 Iron deficiency anemia, unspecified (principal) | CPT/HCPCS: 99204 ==

== ENCOUNTER 2024-11-29 08:00 | Outpatient (RCR) | payer OTHER, SELFPAY ==
[2024-04-30 09:51] VITALS: BP 108/61; PULSE 104; RESP 18; TEMP 36.6
[2024-04-30] MEDS: SODIUM CHLORIDE 0.9% IV (10:42)
[2024-04-30] MEDS: INFLIXIMAB DYYB IV (10:42)
[2024-04-30 10:53] VITALS: BP 112/64; PULSE 90
[2024-04-30 11:03] VITALS: BP 108/57; PULSE 84
[2024-04-30 11:23] VITALS: BP 115/63; PULSE 104
[2024-04-30 11:54] VITALS: BP 108/58; PULSE 90
[2024-04-30 12:24] VITALS: BP 109/64; PULSE 94
[2024-05-17] VITALS (7 sets, daily range): BP systolic 97–111; BP diastolic 56–70; PULSE 89–101; RESP 16; TEMP 37.7; O2SAT 100
[2024-05-17] MEDS: INFLIXIMAB DYYB IV (12:34)
[2024-05-17] MEDS: SODIUM CHLORIDE 0.9% IV (12:34)
[2024-06-12] VITALS (7 sets, daily range): BP systolic 105–116; BP diastolic 44–54; PULSE 80–83; RESP 14; TEMP 36.6; O2SAT 99
[2024-06-12] MEDS: SODIUM CHLORIDE 0.9% IV (08:04)
[2024-06-12] MEDS: INFLIXIMAB DYYB IV (08:04)
[2024-08-07] VITALS (8 sets, daily range): BP systolic 97–110; BP diastolic 49–64; PULSE 70–96; RESP 16; TEMP 37.1; O2SAT 100
[2024-08-07] MEDS: SODIUM CHLORIDE 0.9% IV (09:14)
[2024-08-07] MEDS: INFLIXIMAB DYYB IV (09:14)
[2024-10-02] VITALS (7 sets, daily range): BP systolic 95–107; BP diastolic 49–59; PULSE 73–83; RESP 16; TEMP 36.7; O2SAT 99; BMI 19.4
[2024-10-02] MEDS: INFLIXIMAB DYYB IV (08:48)
[2024-10-02] MEDS: SODIUM CHLORIDE 0.9% IV (08:48)
[2024-11-29] VITALS (12 sets, daily range): BP systolic 94–108; BP diastolic 53–65; PULSE 57–71; RESP 16; TEMP 36.8; O2SAT 100
[2024-11-29] MEDS: SODIUM CHLORIDE 0.9% IV (08:49)
[2024-11-29] MEDS: INFLIXIMAB DYYB IV (08:49)
== END 2024-12-31 14:20 | disposition home or self-care (01) ==
LOC: HO.INF 08:00
PROVIDERS: Visit Provider Internal Medicine Gastroenterology
DX: K50.111 Crohn's disease of large intestine with rectal bleeding (principal)
CPT/HCPCS: 36415; 80230; 83520; 96365; 96366; J1756; Q5103

== ENCOUNTER 2024-12-05 07:30 | Outpatient (RCR) | payer OTHER, SELFPAY ==
[2024-10-16 07:51] VITALS: BP 117/53; PULSE 76; RESP 16; TEMP 36.4; O2SAT 100
[2024-10-25 08:15] VITALS: BP 110/51; PULSE 77; RESP 16; TEMP 36.6; O2SAT 100
[2024-11-01 09:32] VITALS: BP 104/60; PULSE 76; RESP 16; TEMP 36.6; O2SAT 99
[2024-11-08 10:01] VITALS: BP 107/60; PULSE 96; RESP 16; TEMP 37.2; O2SAT 100
[2024-11-08 10:16] LABS: Hematocrit 35.5 % (42.0-52.0); Hemoglobin 10.7 g/dl (14.0-18.0); Mean Corpuscular HGB Conc 30.1 g/dl (31.0-36.0); Mean Corpuscular Hemoglobin 21.9 pg (27.0-33.0); Mean Corpuscular Volume 72.7 fL (80.0-98.0); NRBC Abs Auto 0.000 X10*3/uL (0.0-0.012); NRBC Pct Auto 0.0 /100WBC (0.0-0.2); Platelet Count 296 X10*3/uL (160-400); Red Blood Count 4.88 X10*6/uL (4.60-5.80); White Blood Count 5.2 X10*3/uL (4.8-10.8)
[2024-11-08 10:50] LABS: Ferritin 115 ng/mL (20-250)
[2024-11-15 08:38] VITALS: BP 116/65; PULSE 78; RESP 16; TEMP 36.6; O2SAT 100
[2024-11-22 08:05] VITALS: BP 132/67; PULSE 77; RESP 16; TEMP 36.8; O2SAT 100
[2024-11-28 08:47] VITALS: BP 114/63; PULSE 70; RESP 16; TEMP 36.4; O2SAT 100
[2024-12-05 07:28] VITALS: BP 104/70; PULSE 58; RESP 16; TEMP 36.7; O2SAT 98
== END 2024-12-05 15:30 | disposition home or self-care (01) ==
LOC: HO.INF 07:30
PROVIDERS: Visit Provider Internal Medicine Gastroenterology
DX: D50.9 Iron deficiency anemia, unspecified (principal)
CPT/HCPCS: 36415; 82728; 85027; 96365; 96374; J1756

== ENCOUNTER 2025-01-08 08:14 | Outpatient (AMB) | payer OTHER, SELFPAY ==
--- NOTE | 2025-01-08 08:36 | A.OFFPC_ITS ---
Vital Signs 01/08/25 08:38 Height 5 ft 8 in Weight 129 lb BMI 19.6 BP 116/54 L Blood Pressure Location Lt brachial Position Sitting Pulse 82 Pulse Source Pulse Oximeter Pulse Oximetry (%) 92 Oxygen Delivery Method Room Air Intake Visit Reasons: f/u anemia Interior Wirer Required: No Accompanied by: Self / Same As Patient Allergies No Known Allergies Allergy (Verified 01/08/25 08:39) Medication List - Last Reconciled 01/08/25 by Ivette Guerrero PA-C cholecalciferol (vitamin D3) 25 mcg PO DAILY Gas-X Extra Strength (simethicone) 125 mg PO TID PRN NS sumatriptan succinate take 1 tab at onset of headache; if no relief may repeat 1 tab after at least 2 hrs; max = 2 tabs/24 hr PO Tobacco use date assessed: 01/08/25 Dental Screening Dental Screen Date: 01/08/25 Did you have a dental visit in the last 12 months?: No Did you have a dental problem in the last 6 months where you did not have access to dental care?: No Was dental information given to patient?: No HPI f/u anemia HPI Details 23-year-old male with past medical histo ry of depression, anxiety, anemia and Crohn's colitis last seen 10/2024 coming in for follow up.?In review of the notes, patient was seen by Hematology 12/2024 for iron-deficiency anemia continued on IV infusions and follow up in 3 months. Presenting for a follow-up visit to monitor ongoing treatment for iron deficiency anemia and inflammatory bowel disease. The patient has been receiving iron infusions, which have improved his hemoglobin levels from 7 to 11.5 g/dL as of November. Previously treated with Remicade, which was discontinued due to the body starting to reject it. The patient has switched to Entyvio, with the first infusion causing mild dizziness and body aches, which resolved later in the day. The patient reports feeling good and does not feel the need for medication or counseling at this time. [facility] Medical History Acute Crohn's disease Surgical History No pertinent past surgical history Family History Maternal Grandfather Cancer Social History Household Members: Family Housing: House Do you presently have visiting nurse or other home services: No Alcohol intake: never Patient Tobacco Use Status: Never used Tobacco e-Cigarette/Vaping Use: Never Used Second Hand Smoke Exposure: No service: No Current occupational status: unemployed Cognitive needs: No Hearing needs: No Vision needs: No Questionnaire Thrive Questionnaire Date Thrive assessed: 01/08/25 I am a: Patient What is your living situation today?: I have a steady place to live Within the past 12 months, did the food you bought not last and you didn't have the money to get more?: Sometimes True Within the past 12 months, did you worry whether your food would run out before you got money to buy more?: Sometimes True Do you have trouble paying for medicines?: No Do you have trouble getting transportation to medical appointments?: No Do you have trouble paying your heating and electricity bill?: No Do you have trouble taking care of your child, family member or friend?: I choose not to answer this question Do you have trouble with day-to-day activities such as bathing, preparing meals, shopping, managing finances, etc.?: Yes Are you currently unemployed and looking for a job?: No Are you interested in more education?: I choose not to answer this question Please select the resources that you would like help with: None Currently or been in a relationship where the following occur: Controlled Emotionally THRIVE Score: 3 ROLAND-7 AMB Questionnaire ROLAND-7 Date ROLAND - 7 assessed: 01/08/25 Source: Developed by Drs. Julio Rowell, Maria De Jesus De Leon, Ibrahima Valadez and colleagues, with an educational juan c from [employer]. Review of Systems Const Denies body aches, Denies chills, Denies fever(s), Denies headache(s) and Denies poor appetite Eyes Reports no additional complaints ENT Denies dysphagia, Denies dizziness, Denies headache(s) and Denies odynophagia Card Denies chest pain, Denies syncope, Denies edema, Denies irregular heart rhythm, Denies lightheadedness and Denies dyspnea Resp Denies cough and Denies dyspnea GI Denies abdominal pain, Denies constipation, Denies dysphagia, Denies diarrhea, Denies nausea, Denies odynophagia and Denies vomiting Reports no additional complaints Musc Reports no additional complaints and Denies abnormal gait Skin/Breast Reports system reviewed and no additional complaints, except as documented Neuro Denies abnormal gait, Denies dizziness, Denies syncope and Denies headache(s) Psych Reports no additional complaints Physical exam (Primary Care) Vital Signs: Last Vital Signs Pulse 82 01/08/25 08:38 BP 116/54 L 01/08/25 08:38 Pulse Ox 92 01/08/25 08:38 Oxygen Delivery Method Room Air 01/08/25 08:38 BMI result Body Mass Index 19.6 Tobacco/Smoking Status: Tobacco use Status Tobacco use date assessed 01/08/25 01/08/25 08:38 Patient Tobacco Use Status Never used Tobacco 01/08/25 08:38 e-Cigarette/Vaping Use Never Used 01/08/25 08:38 Thrive Assessment: Date of Thrive Assessment Date Thrive assessed 01/08/25 01/08/25 08:38 Currently or been in a relationship where the following occur: Controlled Emotionally Const General: cooperative, healthy appearing, comfortable and no acute distress Orientation/consciousness: patient oriented x3 HENMT Head: Yes normocephalic Ears: hearing grossly normal bilaterally General nose exam: Normal external nose present Eyes General: appearance normal, both eyes and all related structures Conjunctivae: conjunctivae normal Neck Neck: Yes full ROM and Yes no lymphadenopathy Resp Effort & Inspection: normal respiratory effort Auscultation: clear to auscultation bilaterally, no crackles, no rales, no rhonchi and no wheezes Cardio Rate: regular rate Rhythm: regular rhythm Skin General skin exam: no rashes or lesions noted Neuro General: patient oriented x3 Gait exam (Neuro): Normal gait present Extrem General: Yes normal to inspection, Yes full ROM and No edema Psych Affect: normal affect Attitude: cooperative Insight: Good insight present (Psych) Judgement: Good judgement present (Psych) Coding Level of Care Code Est Pt Level 3 (07715) Diagnoses Recurrent major depressive disorder, remission status unspecified F33.9 Active/Remission status: remission status unspecified Depression Type: major depressive disorder Major depression recurrence: recurrent Anxiety F41.9 Crohn's disease of colon with rectal bleeding K50.111 Digestive disease complication type: with rectal bleeding Chest pain on exertion R07.9 Shortness of breath R06.02 Iron deficiency anemia D50.9 Assessment & Plan Assessment & Plan (1) Depression: Code(s): F32.A - Depression, unspecified Category: Medical Qualifiers: Active/Remission status: remission status unspecified Depression Type: major depressive disorder Major depression recurrence: recurrent Qualified Code(s): F33.9 - Major depressive disorder, recurrent, unspecified Plan: Patient has a history of depression states that he typically struggles with depression and anxiety but declines medication at this time. He does have a history of self-harm but denies any thoughts at this time and feels comfortable reach out if this were to change. Declining counseling as well. (2) Anxiety: Code(s): F41.9 - Anxiety disorder, unspecified Category: Medical Plan: Patient has a history of anxiety and declining medication at this time but is open to counseling referral. See above. (3) Crohn's colitis: Comment: Dr. Shrestha [facility] [place] Code(s): K50.10 - Crohn's disease of large intestine without complications Category: Medical Qualifiers: Digestive disease complication type: with rectal bleeding Qualified Code(s): K50.111 - Crohn's disease of large intestine with rectal bleeding Plan: Currently following with Gastroenterology and receiving IV infusion of Entyvio he believes. Last infusion went well had no side effects. (4) Chest pain on exertion: Code(s): R07.9 - Chest pain, unspecified Category: Medical Plan: Cardiology workup was normal he also admits chest pain has resolved at this time. He will continue to monitor his symptoms and reach out to the office if chest pain starts again. (5) Shortness of breath: Code(s): R06.02 - Shortness of breath Category: Medical Plan: PFT was normal, pulmonology suggested his shortness of breath was likely due to his low hemoglobin. Advised patient to continue to monitor his symptoms at time. Hemoglobin was low and iks being corrected at this time and symptoms have improved. (6) Iron deficiency anemia: Code(s): D50.9 - Iron deficiency anemia, unspecified Category: Medical Plan: Patient having iron-deficiency anemia hemoglobin of 7.3 and iron level of 7. Likely secondary to his colitis. Referral was placed to Hematology/Oncology where he recieved IV iron infusions and Hgb improved. Plan to continue to monitor Hgb at this time. Plan The patient will continue monitoring his hemoglobin levels with upcoming blood work scheduled for later this month or next month to ensure stability post-iron infusion treatment. The switch from Remicade to Entyvio for inflammatory bowel disease management will be monitored, with attention to any adverse effects following infusions. The patient has been advised to maintain hydration and monitor bowel movements, reporting any significant changes or symptoms to the healthcare provider. Follow-up with hematology and gastroenterology is planned, with the next appointment scheduled for October, unless issues arise that require earlier intervention. This note was constructed using voice recognition software. While every effort has been made to ensure accuracy and dairy equipment installer, still areas may have been included sometimes these areas may affect the content or meeting of the given symptoms. Total time spent caring for the patient today was 20 minutes. This includes time spent before the visit reviewing the chart, time spent during the visit, and time spent after the visit and documentation. Patient was informed and verbally consented to the use of an ambient scribe for clinic note documentation during this visit.
[2025-01-08 08:38] VITALS: BP 116/54; PULSE 82; O2SAT 92; BMI 19.6
== END 2025-01-08 09:20 | disposition home or self-care (01) ==
LOC: HO.HMCH 08:15
DX: F33.9 Major depressive disorder, recurrent, unspecified (principal); F41.9 Anxiety disorder, unspecified; K50.111 Crohn's disease of large intestine with rectal bleeding; R07.9 Chest pain, unspecified; R06.02 Shortness of breath; D50.9 Iron deficiency anemia, unspecified

== ENCOUNTER 2025-02-17 07:30 | Outpatient (RCR) | payer OTHER, SELFPAY ==
[2025-01-06 07:33] VITALS: BP 108/63; PULSE 90; RESP 16; TEMP 36.7; O2SAT 100
[2025-01-20 07:33] VITALS: BP 109/52; RESP 16; TEMP 36.6; O2SAT 99
[2025-01-20] MEDS: 0.9 % Sodium Chloride Flush 10 ML SYRINGE 5 ML IVFLUSH (09:23)
[2025-02-17 07:36] VITALS: BP 116/52; PULSE 70; RESP 16; TEMP 36.7; O2SAT 100
== END 2025-02-17 13:40 | disposition home or self-care (01) ==
LOC: HO.INF 07:30
PROVIDERS: Visit Provider Internal Medicine Gastroenterology
DX: K50.811 Crohn's disease of both small and large intestine with rectal bleeding (principal)
CPT/HCPCS: 96365; J3380

== ENCOUNTER 2025-04-01 07:16 | Outpatient (REF) | payer OTHER, SELFPAY ==
[2025-04-01 07:27] LABS: MANUAL DIFF FLAG NO
[2025-04-01 07:43] LABS: Hematocrit 39.9 % (42.0-52.0); Hemoglobin 12.3 g/dl (14.0-18.0); Imm Gran Pct Auto 0.2 % (0.0-0.4); Mean Corpuscular HGB Conc 30.8 g/dl (31.0-36.0); Mean Corpuscular Hemoglobin 26.2 pg (27.0-33.0); Mean Corpuscular Volume 84.9 fL (80.0-98.0); NRBC Pct Auto 0.0 /100WBC (0.0-0.2); Platelet Count 360 X10*3/uL (160-400); Red Blood Count 4.70 X10*6/uL (4.60-5.80); White Blood Count 5.6 X10*3/uL (4.8-10.8)
[2025-04-01 07:44] LABS: Imm Gran Abs Auto 0.01 X10*3/uL (0.00-0.03); Lymphocytes Absolute Auto 0.6 X10*3/uL (1.2-4.9); NRBC Abs Auto 0.000 X10*3/uL (0.0-0.012)
[2025-04-01 08:22] LABS: Alanine Aminotransferase 11 U/L (0-40); Albumin Level 4.2 g/dL (3.5-5.0); Alkaline Phosphatase 106 U/L (39-117); Anion Gap 13 (12-20); Aspartate Amino Transferase 17 U/L (5-37); Blood Urea Nitrogen 13 mg/dL (9-16); Calcium 9.1 mg/dL (8.4-10.2); Carbon Dioxide 27 mmol/L (22-29); Chloride 107 mmol/L (96-108); Estimated Glomerular Filt Rate > 60; Potassium 3.6 mmol/L (3.3-5.1); Sodium 143 mmol/L (135-145); Total Protein 7.8 g/dL (6.5-8.0)
[2025-04-01 08:28] LABS: Ferritin 146 ng/mL (20-250)
== END 2025-04-01 07:17 | disposition home or self-care (01) ==
LOC: HO.LAB 07:16
PROVIDERS: Visit Provider Internal Medicine Gastroenterology
DX: K50.111 Crohn's disease of large intestine with rectal bleeding (principal); K75.81 Nonalcoholic steatohepatitis (NASH)
CPT/HCPCS: 36415; 80053; 82728; 83631; 85025; 86140

== ENCOUNTER 2025-04-14 08:50 | Outpatient (AMB) | payer OTHER, SELFPAY ==
[2025-04-14 08:51] VITALS: BP 115/52; PULSE 90; BMI 18.8
--- NOTE | 2025-04-14 08:51 | A.OFFVIS_ITS ---
Vital Signs 04/14/25 08:51 Height 5 ft 8 in Weight 123 lb 7.342 oz BMI 18.8 BP 115/52 L Blood Pressure Location Lt brachial Position Sitting Pulse 90 Intake Visit Reasons: 6 month crohns Intake Note: Romaine presents in the office as a 6 month follow up. CC: Ore Fielder Required: No Allergies No Known Allergies Allergy (Verified 04/14/25 08:55) HPI HPI 6 month crohns: Details: 24 years old man with past medical history significant for Crohn's disease who I am seeing for f/u RECAP: Per review of [facility] EMR he was diagnosed with crohns 2020 with colonoscopy revealing granulomas and metapalsia in the colon. He was commenced on humira which seemed to work well at the start but may have stopped working after a while. He lost insurance and stopped getting the medication He was admitted with flare of IBDS 2023 and commenced on remicade thereafter. Imaging: Abdomen pelvis CT scan showed finding consistent with active inflammatory bowel disease, hepatomegaly and mild portal edema. cecum is distended INTERIM: he is on entyvio (high antibodies to infliximab) he is doing well he has minimal blood in stool--usu on wiping no abdominal no diarrhea, stool appears normal he is happy with the medication and feels it is working well --better than remicade LABS reviewed 03/29-- improved HGB and CRP -neg hep screen and TB EXAM: GENERAL: The patient is well developed and nontoxic. VITAL SIGNS:see workflow HEENT: Nonicteric sclerae, PERRLA, EOMI. Oropharynx clear. Moist mucous membranes. Conjunctivae appear well perfused. No thyroid mass. CHEST: Chest wall is nontender. HEART: Regular rate and rhythm without murmurs. LUNGS: Clear to auscultation bilaterally. ABDOMEN: Soft, positive bowel sounds, nontender, no organomegaly.no flank tenderness SKIN: No rash, no excessive bruising, petechiae, or purpura. NEUROLOGIC: Cranial nerves II-XII intact without motor/sensory deficit. Psych: normal affect A/P: 1/ Crohns colitis, better with remicade dx 2019--now on entyvio-- has good response, antibodies to infliximab PLAN: 1/ cont with entyvio as has significant clinical improvement 2/ colonoscopy future date 3/ non smoker,, no drugs or nsaid use [facility] Medical History Acute Crohn's disease Surgical History (Updated 04/14/25 @ 08:59 by CAROL ANN Mariano) Hx of colonoscopy History of esophagogastroduodenoscopy (EGD) No pertinent past surgical history Family History Maternal Grandfather Cancer Social History Household Members: Family Housing: House Do you presently have visiting nurse or other home services: No Alcohol intake: never Patient Tobacco Use Status: Never used Tobacco e-Cigarette/Vaping Use: Never Used Second Hand Smoke Exposure: No service: No Current occupational status: unemployed Cognitive needs: No Hearing needs: No Vision needs: No Physical Exam Vital Signs: Last Vital Signs Pulse 90 04/14/25 08:51 BP 115/52 L 04/14/25 08:51 BMI result Body Mass Index 18.8 Assessment & Plan Assessment & Plan (1) Crohn's colitis: Comment: [facility]. Shrestha [facility] [place] Code(s): K50.10 - Crohn's disease of large intestine without complications Category: Medical Qualifiers: Digestive disease complication type: with rectal bleeding Qualified Code(s): K50.111 - Crohn's disease of large intestine with rectal bleeding Plan: as above Coding Level of Care Code Est Pt Level 4 (09879) Diagnoses Crohn's disease of colon with rectal bleeding K50.111 Digestive disease complication type: with rectal bleeding
== END 2025-04-14 09:13 | disposition home or self-care (01) ==
LOC: HO.HGI 08:51
PROVIDERS: Visit Provider Internal Medicine Gastroenterology
DX: K50.111 Crohn's disease of large intestine with rectal bleeding (principal)
CPT/HCPCS: 99214